=== PATIENT | female | born 1960 | race Caucasian/White ===

== ENCOUNTER 2016-04-30 22:27 | Observation (INO) | payer OTHER ==
[~2016-04-30] VITALS: Ht 167.6 cm; Wt 93.0 kg
--- NOTE | 2016-04-30 22:36 | NUR ---
TRIAGE; PT TO ED WITH PAIN ACROSS THE TOP OF HER ABDOMEN. STATES SHE HAS INTERMITTENT CHILLS AND USES A HEATING PAD WITH MINIMAL RELIEF. STATES SHE IS +N/V, DENIES ANY DIARREA. STATES WHEN SHE VOMITS, TOWARDS THE END SHE SEEMS LIKE HER EMESIS IS SLUDGE. PT DENIES ANY CP/SOB. STATES HAS HAD THIS HAPPEN TO HER 3-4 OTHER TIMES.
[2016-04-30 22:58] LABS: ABSOLUTE BASOPHIL COUNT 0 /CUMM (0.0-0.2); ABSOLUTE EOSINOPHIL COUNT 0.1 /CUMM (0.0-0.7); ABSOLUTE LYMPH COUNT 1.8 /CUMM (1.2-3.4); ABSOLUTE MONOCYTE COUNT 0.5 /CUMM (0.10-0.60); BASOPHIL % 0.3 % (0.0-2.0); EOSINOPHIL % 0.5 % (0-5); GRANULOCYTE % 82.9 % (42.2-75.2); HEMATOCRIT 40.9 % (37-47); MEAN CORPUSCULAR HGB 30.4 PG (27.0-31.0); MEAN CORPUSCULAR HGB CONC 33.8 G/DL (33.0-37.0); MEAN CORPUSCULAR VOLUME 89.9 FL (81.0-99.0); MEAN PLATELET VOLUME 8.1 FL (7.4-10.4); PLATELET COUNT 317 /CUMM (130-400); RBC DISTRIBUTION WIDTH 13.8 % (11.5-14.5); RED BLOOD CELL CT 4.55 /CUMM (4.20-5.40); WHITE BLOOD CELL COUNT 14.5 /CUMM (4.8-10.8)
--- NOTE | 2016-04-30 23:15 | NUR ---
PT TO ROOM 4, AWAITING PROVIDER EVAL
--- NOTE | 2016-04-30 23:22 | ED GI/GU/ABDOMINAL COMPLAINT ---
History of Present Illness General Chief Complaint: General Adult Stated Complaint: " ABD PAIN, +N+V-D,CHILLS" Source: patient, family, old records Exam Limitations: no limitations Vital Signs & Intake/Output Vital Signs & Intake/Output Vital Signs Date Time Temp Pulse Resp B/P Pulse O2 O2 Flow FiO2 Ox Delivery Rate 04/30 2323 Room Air 04/30 2234 97.9 67 16 146/84 98 Room Air Allergies Coded Allergies: Sulfa (Sulfonamide Antibiotics) (Intermediate, HIVES 04/30/16) Triage Note: TRIAGE; PT TO ED WITH PAIN ACROSS THE TOP OF HER ABDOMEN. STATES SHE HAS INTERMITTENT CHILLS AND USES A HEATING PAD WITH MINIMAL RELIEF. STATES SHE IS +N/V, DENIES ANY DIARREA. STATES WHEN SHE VOMITS, TOWARDS THE END SHE SEEMS LIKE HER EMESIS IS SLUDGE. PT DENIES ANY CP/SOB. STATES HAS HAD THIS HAPPEN TO HER 3-4 OTHER TIMES. Triage Nurses Notes Reviewed? yes ? N Is pt currently ? No HPI: Patient presents with epigastric abdominal pain that radiates through to her back. The pain is 8 out of 10. Patient states that the pain gradually escalated to the point that she vomits. When she vomits the pain decreases down to 5 out of 10 before slowly but steadily increasing again. There are no aggravating factors. The pain is cramping and squeezing and burning in nature. The patient states she has had similar symptoms in the past but the symptoms usually go away after a few hours and this episode has been going on for the past 4 hours constant. There are chills but no fevers. There is no diarrhea. Past History Travel History Traveled to [place] past 21 day No Medical History Any Pertinent Medical History? none Surgical History Surgical History: none Psychosocial History What is your primary language Nepali Tobacco Use: Never used ETOH Use: occasional use Illicit Drug Use: denies illicit drug use Family History Hx Contributory? No Review of Systems Review of Systems Constitutional: Reports: no symptoms. EENTM: Reports: no symptoms. Respiratory: Reports: no symptoms. Cardiovascular: Reports: no symptoms. GI: Reports: see HPI, abdominal pain, nausea, vomiting. Genitourinary: Reports: no symptoms. Musculoskeletal: Reports: no symptoms. Skin: Reports: no symptoms. Neurological/Psychological: Reports: no symptoms. Hematologic/Endocrine: Reports: no symptoms. Immunologic/Allergic: Reports: no symptoms. All Other Systems: Reviewed and Negative Physical Exam Physical Exam General Appearance: well developed/nourished, alert, awake, moderate distress Head: atraumatic, normal appearance Eyes: Bilateral: PERRL, EOMI, other (ANICTERIC). Ears, Nose, Throat, Mouth: hearing grossly normal, DRY MUCOSA Neck: normal inspection, supple, full range of motion Respiratory: normal breath sounds, chest non-tender, no respiratory distress, lungs clear Cardiovascular: regular rate/rhythm, normal peripheral pulses Gastrointestinal: normal bowel sounds, soft, no organomegaly, tenderness (RIGHT UPPER QUADRANT), POSITIVE [place] SIGN Back: normal inspection, normal range of motion, NO cva TENDERNESS Extremities: normal range of motion Neurologic/Psych: no motor/sensory deficits, awake, alert, oriented x 3, normal mood/affect Skin: intact, normal color, warm/dry Core Measures ACS in differential dx? Yes ASA ordered for poss ACS? No-ACS ruled out Severe Sepsis Present: No Septic Shock Present: No Progress Differential Diagnosis: AMI, biliary colic, cholecystitis, pancreatitis, peptic ulcer, PUD/GERD Plan of Care: Orders Procedure Date/time Status Place in observation 05/01 0038 Active Add-on Test (ER Only) 04/30 2321 Active EKG 04/30 2321 Active TROPONIN LEVEL 04/30 2253 Complete LIPASE 04/30 2253 Complete AMYLASE 04/30 2253 Complete COMPREHENSIVE METABOLIC PANEL 04/30 2240 Complete CBC WITHOUT DIFFERENTIAL 04/30 2240 Complete Laboratory Tests 04/30/16 2253: Anion Gap 11, Estimated GFR > 60, BUN/Creatinine Ratio 18.6, Glucose 139 H, Calcium 9.7, Total Bilirubin 0.9, AST 107 H, ALT 86 H, Alkaline Phosphatase 125, Troponin I < 0.01, Total Protein 7.6, Albumin 4.2, Globulin 3.4, Albumin/ Globulin Ratio 1.2, Amylase 61, Lipase 87, CBC w Diff NO MAN DIFF REQ, RBC 4.55, MCV 89.9, MCH 30.4, RDW 13.8, MPV 8.1, Gran % 82.9 H, Lymphocytes % 12.7 L, Monocytes % 3.6, Eosinophils % 0.5, Basophils % 0.3, Absolute Granulocytes 12.0 H, Absolute Lymphocytes 1.8, Absolute Monocytes 0.5, Absolute Eosinophils 0.1, Absolute Basophils 0, PUBS MCHC 33.8 Diagnostic Imaging: Viewed by Me: CT Scan. Discussed w/RAD: CT Scan. Radiology Impression: PATIENT: NAHUM LENZ PRESENT AGE: 55 PATIENT ACCOUNT NO: [id number] : 56 LOCATION: [facility] ORDERING PHYSICIAN: HOLLY CURTIS MD SERVICE DATE: 04/30/16 EXAM TYPE: CAT - CT ABD & PELVIS W IV CONTRAST EXAMINATION: CT ABDOMEN AND PELVIS WITH CONTRAST CLINICAL INFORMATION: Right upper quadrant abdominal pain COMPARISON: None. TECHNIQUE: Multidetector volumetric imaging was performed of the abdomen and pelvis before and after the IV administration of 95 mL of Optiray 320 intravenous contrast. Sagittal and coronal reformatted images were obtained on the technologist's workstation. DLP: 632.70 mGy-cm. FINDINGS: LUNG BASES: There is a 1.7 cm focal groundglass opacity in the left lower lobe. No pleural effusions. LIVER, GALLBLADDER, AND BILIARY TREE: The liver is normal in size, shape, and attenuation.. Multiple small hepatic hypodense lesions seen. The largest one measures about 17 mm with 10 Hounsfield unit density, likely representing a hepatic cyst. The gallbladder is distended and contains a small gallstone and hyperdense material. There is minimal fat stranding surrounding the posterior wall of the gallbladder as seen on sagittal image 93 from series 601. Findings could represent acute cholecystitis. Clinical correlation is advised. The CBD measures about 7-8 mm at the level of head of pancreas. No radiodense CBD stones seen. PANCREAS: Unremarkable. SPLEEN: Unremarkable. ADRENAL GLANDS: Unremarkable. KIDNEYS AND URETERS: The kidneys are normal in size, shape, and attenuation. No hydronephrosis, hydroureter, or calculi seen. No perinephric stranding. BLADDER: Unremarkable. GASTROINTESTINAL TRACT: The small and large bowel are not dilated. Mild diverticular disease of sigmoid colon is seen without evidence of acute diverticulitis. The appendix is unremarkable, sagittal image 89-100. ABDOMINAL WALL: Mesenteric fat herniates through a 2 cm defect in the anterior abdominal wall, located just above the umbilicus. There is stranding of the herniated mesenteric fat. No fluid seen within the hernial sac. LYMPH NODES: Normal. VASCULAR: Unremarkable. PELVIC VISCERA: Unremarkable. OSSEOUS STRUCTURES: There is narrowing of L5-S1 intervertebral disc space with grade 1 anterolisthesis and bilateral pars defects. IMPRESSION: 1. Gallstones with mild pericholecystic fat stranding. Clinical correlation for acute cholecystitis is suggested. 2. Fat-containing supraumbilical anterior abdominal wall hernia. The mid depth 3. Mild diverticular disease of sigmoid colon without evidence of acute diverticulitis. 4. Hepatic cysts. DICTATED BY: HAVEN SHARP MD DATE/TIME DICTATED:04/30/162352 TELECOM MANAGER:BELEN DATE/TIME TRANSCRIBED:04/30/162352 CONFIDENTIAL, DO NOT COPY WITHOUT APPROPRIATE AUTHORIZATION. <Electronically signed in Other Vendor System> SIGNED BY: HAVEN SHARP MD 05/01/16 0008 Initial ED EKG: NSR Comments: Patient and her have been updated on lab results as well as CAT scan results. Questions have been answered. Awaiting surgical consultation. Departure Departure Disposition: STILL A PATIENT Condition: Stable Clinical Impression Primary Impression: Acute cholecystitis Referrals: JESICA ADLER,HOLLY Abernathy (PCP/Family) Departure Forms: Customer Survey General Discharge Information Observation Note Spoke With: SHUN ADLER,KARLA Mcdermott Physician Advisor Notified: EVER ADLER,HOLLY Manuel Place Patient In: Non-ED OBS Care Area Rationale for Observation: My rational for observation is as follows [nothing by mouth, IV fluids, IV antibiotics, laparoscopic cholecystectomy].
--- NOTE | 2016-04-30 23:41 | NUR ---
IV EST #20 IN LEFT FOREARM BY THIS RN
--- NOTE | 2016-05-01 00:05 | NUR ---
PT C/O 5/10 PAIN AND NAUSEA. PT MEDICATED WITH ZOFRAN AND KETOROLAC PER ORDER.
--- NOTE | 2016-05-01 00:08 | CT SCAN REPORT ---
EXAMINATION: CT ABDOMEN AND PELVIS WITH CONTRAST CLINICAL INFORMATION: Right upper quadrant abdominal pain COMPARISON: None. TECHNIQUE: Multidetector volumetric imaging was performed of the abdomen and pelvis before and after the IV administration of 95 mL of Optiray 320 intravenous contrast. Sagittal and coronal reformatted images were obtained on the technologist's workstation. DLP: 632.70 mGy-cm. FINDINGS: LUNG BASES: There is a 1.7 cm focal groundglass opacity in the left lower lobe. No pleural effusions. LIVER, GALLBLADDER, AND BILIARY TREE: The liver is normal in size, shape, and attenuation.. Multiple small hepatic hypodense lesions seen. The largest one measures about 17 mm with 10 Hounsfield unit density, likely representing a hepatic cyst. The gallbladder is distended and contains a small gallstone and hyperdense material. There is minimal fat stranding surrounding the posterior wall of the gallbladder as seen on sagittal image 93 from series 601. Findings could represent acute cholecystitis. Clinical correlation is advised. The CBD measures about 7-8 mm at the level of head of pancreas. No radiodense CBD stones seen. PANCREAS: Unremarkable. SPLEEN: Unremarkable. ADRENAL GLANDS: Unremarkable. KIDNEYS AND URETERS: The kidneys are normal in size, shape, and attenuation. No hydronephrosis, hydroureter, or calculi seen. No perinephric stranding. BLADDER: Unremarkable. GASTROINTESTINAL TRACT: The small and large bowel are not dilated. Mild diverticular disease of sigmoid colon is seen without evidence of acute diverticulitis. The appendix is unremarkable, sagittal image 89-100. ABDOMINAL WALL: Mesenteric fat herniates through a 2 cm defect in the anterior abdominal wall, located just above the umbilicus. There is stranding of the herniated mesenteric fat. No fluid seen within the hernial sac. LYMPH NODES: Normal. VASCULAR: Unremarkable. PELVIC VISCERA: Unremarkable. OSSEOUS STRUCTURES: There is narrowing of L5-S1 intervertebral disc space with grade 1 anterolisthesis and bilateral pars defects. IMPRESSION: 1. Gallstones with mild pericholecystic fat stranding. Clinical correlation for acute cholecystitis is suggested. 2. Fat-containing supraumbilical anterior abdominal wall hernia. The mid depth 3. Mild diverticular disease of sigmoid colon without evidence of acute diverticulitis. 4. Hepatic cysts.
--- NOTE | 2016-05-01 00:08 | NUR ---
EKG DONE AND SHOWN TO DR. CURTIS.
--- NOTE | 2016-05-01 00:34 | NUR ---
PT MEDICATED WITH 1G UNASYN @200MLS/HR PER EMAR
--- NOTE | 2016-05-01 01:32 | NUR ---
PT DENIES PAIN AND NAUSEA. PT APPEARS COMFORTABLE. PT INFORMED OF PLAN. NO APPARENT DISTRESS. WILL CONTINUE TO MONITOR .
--- NOTE | 2016-05-01 01:37 | Admission Core Measures ---
Admission Lab Results I reviewed the following labs: Laboratory Tests 04/30 9127 Chemistry Sodium (137 - 145 mmol/L) 143 Potassium (3.5 - 5.1 mmol/L) 3.9 Chloride (98 - 107 mmol/L) 107 Carbon Dioxide (22 - 30 mmol/L) 25 Anion Gap (5 - 16) 11 BUN (7 - 17 mg/dL) 13 Creatinine (0.5 - 1.0 mg/dL) 0.7 Estimated GFR (>60 ml/min) > 60 BUN/Creatinine Ratio (7 - 25 %) 18.6 Glucose (65 - 99 mg/dL) 139 H Calcium (8.4 - 10.2 mg/dL) 9.7 Total Bilirubin (0.2 - 1.3 mg/dL) 0.9 AST (14 - 36 U/L) 107 H ALT (9 - 52 U/L) 86 H Alkaline Phosphatase (<127 U/L) 125 Troponin I (< 0.11 ng/ml) < 0.01 Total Protein (6.3 - 8.2 g/dL) 7.6 Albumin (3.5 - 5.0 g/dL) 4.2 Globulin (1.9 - 4.2 gm/dL) 3.4 Albumin/Globulin Ratio (1.1 - 2.2 %) 1.2 Amylase (30 - 110 U/L) 61 Lipase (23 - 300 U/L) 87 Hematology CBC w Diff NO MAN DIFF REQ WBC (4.8 - 10.8 /CUMM) 14.5 H RBC (4.20 - 5.40 /CUMM) 4.55 Hgb (12.0 - 16.0 G/DL) 13.8 Hct (37 - 47 %) 40.9 MCV (81.0 - 99.0 FL) 89.9 MCH (27.0 - 31.0 PG) 30.4 RDW (11.5 - 14.5 %) 13.8 Plt Count (130 - 400 /CUMM) 317 MPV (7.4 - 10.4 FL) 8.1 Gran % (42.2 - 75.2 %) 82.9 H Lymphocytes % (20.5 - 51.1 %) 12.7 L Monocytes % (1.7 - 9.3 %) 3.6 Eosinophils % (0 - 5 %) 0.5 Basophils % (0.0 - 2.0 %) 0.3 Absolute Granulocytes (1.4 - 6.5 /CUMM) 12.0 H Absolute Lymphocytes (1.2 - 3.4 /CUMM) 1.8 Absolute Monocytes (0.10 - 0.60 /CUMM) 0.5 Absolute Eosinophils (0.0 - 0.7 /CUMM) 0.1 Absolute Basophils (0.0 - 0.2 /CUMM) 0 PUBS MCHC (33.0 - 37.0 G/DL) 33.8 Admission Meds I reviewed the following Meds: Current Medications Sig/Heriberto Start time Last Medication Dose Stop Time Status Admin Ampicillin Sodium/ 3,000 MG Q6 05/01 0600 UNVr Sulbactam Sodium (Unasyn) Sodium Chloride 100 ML (Normal Saline 0.9%) Dextrose/Sodium 1,000 ML .Q10H 05/01 0130 UNVr Chloride (D5W-1/2 Normal Saline 1000ML) Morphine Sulfate 2 MG Q2P PRN 05/01 0130 UNVr (Morphine) Ondansetron HCl 4 MG Q8P PRN 05/01 0130 UNVr (Zofran) Acute Coronary Syndrome Inclusion Criteria ACS Diagnosis No Inpatient Core Measures LDL Reminder: If No, please order W/I first 24hr of stay Congestive Heart Failure Inclusion Criteria CHF Diagnosis No Cerebrovascular accident Inclusion Criteria CVA/TIA Diagnosis No Inpatient Core Measures Bedside Swallow Eval Reminder: If BSE failed, place ST order Antithrombotic Reminder: Order Antithrombotic Medication by end of day 2 Antithrombotic Reminder: Document Reason Antithrombotic Not ordered by end of day 2 AFIB/Flutter Reminder: If Present, add to problem list AFIB/Flutter Reminder: Order Anticoag Medication for pts with AFIB/Flutter Atherosclerosis Reminder: If Present, add to problem list LDL Reminder: If No, please order W/I first 24hr of stay PT Order Reminder: If No, please order Venous thromboembolism Inpatient Core Measures VTE Risk Factors: Age > 40 VTE Prophylaxis Ordered Inpt Mechanical (ALPS/TEDS) No [facility] VTE prophylaxis d/t No contraindications No VTE Pharm Prophylaxis d/t Surgical contraindication Inclusion Criteria - Per Current guidelines, there needs to be overlap - treatment for the first 5 days of Warfarin therapy. - Parenteral Anticoagulation (IV or SC) needs to be - given along with Warfarin therapy. VTE Diagnosis No VTE Type NONE VTE Confirmed by (Test) NONE Problem List As ranked by this Provider includes Assessment & Plan 1. Acute cholecystitis
--- NOTE | 2016-05-01 01:56 | History & Physical Pre-Op ---
SIENNABA 05/01/16 0137: General Information and HPI MD Statement: I have seen and personally examined MELBA LENZ and documented this H&P. The patient is a 55 year old F who presented with a patient stated chief complaint of [ABDOMINAL PAIN, NAUSEA, VOMITTING]. Source of Information: patient Exam Limitations: no limitations History of Present Illness: Melba is a 55 year old female presenting to ED today with complaints of abdominal pain, at times 10/10, in the epigastric area and also in her right upper quadrant. She last ate this afternoon. She has been vomitting. She denies diarrhea. She last moved her bowels this am. She states that she began to notice abdominal discomfort approximately 6 months ago, and since that time has had 4 episodes similar in nature to this present one, this one being the worst. She has tried diet modification as well as antacid therapy to relieve her symptoms, it has been helpful prevously, but today had no effect. In addition to abdominal discomfort today she complains of chills and general malaise. She denies chest pain, shortness of breath and difficulty breathing. Melba also mentioned a history of what she describes as an umbilical hernia, she does not associate her present discomort with any change in the character of the hernia. She states it is most pronounced when she coughs. Allergies/Medications Allergies: Coded Allergies: Sulfa (Sulfonamide Antibiotics) (Intermediate, HIVLAURA 04/30/16) Past History Medical History Neurological: NONE EENT: NONE Cardiovascular: NONE Respiratory: NONE Gastrointestinal: NONE Hepatic: cholecystitis, cholelithiasis Renal: NONE Musculoskeletal: NONE Psychiatric: NONE Endocrine: NONE Blood Disorders: NONE Surgical History Pertinent Surgical History: none Past Family/Social History Psychosocial History ETOH Use: occasional use Illicit Drug Use: denies illicit drug use Review of Systems Review of Systems Constitutional: Reports: see HPI, chills, malaise. EENTM: Reports: no symptoms. Cardiovascular: Reports: no symptoms. Respiratory: Reports: no symptoms. GI: Reports: see HPI, abdominal pain, nausea, vomiting. Genitourinary: Reports: no symptoms. Musculoskeletal: Reports: no symptoms. Skin: Reports: no symptoms. Neurological/Psychological: Reports: no symptoms. Hematologic/Endocrine: Reports: no symptoms. Immunologic/Allergic: Reports: no symptoms. All Other Systems: Reviewed and Negative Exam & Diagnostic Data Last 24 Hrs of Vital Signs/I&O Vital Signs Date Time Temp Pulse Resp B/P Pulse O2 O2 Flow FiO2 Ox Delivery Rate 05/01 0133 98.2 63 18 126/64 98 Room Air 04/30 2322 Room Air 04/304 97.9 67 16 146/84 98 Room Air Intake & Output 05/01 0800 05/01 0000 04/30 1600 Intake Total 0 Output Total Balance 0 Intake, Oral 0 Physical Exam General Appearance Alert, Oriented X3, Cooperative, No Acute Distress Skin No Rashes, No Breakdown, No Significant Lesion HEENT Atraumatic, PERRLA, EOMI, Mucous Membr. moist/pink, ANICTERIC Neck Supple, No JVD Lungs Clear to Auscultation, Normal Air Movement Abdomen Soft, No Masses, RUQ TENDERNESS, HYPOACTIVE BOWEL SOUNDS Neurological Normal Speech Extremities No Clubbing, No Cyanosis, No Edema, Normal Pulses, No Tenderness/ Swelling Vascular Normal Pulses Last 24 Hrs of Labs/Vinicio: Laboratory Tests 04/30/163: Anion Gap 11, Estimated GFR > 60, BUN/Creatinine Ratio 18.6, Glucose 139 H, Calcium 9.7, Total Bilirubin 0.9, AST 107 H, ALT 86 H, Alkaline Phosphatase 125, Troponin I < 0.01, Total Protein 7.6, Albumin 4.2, Globulin 3.4, Albumin/ Globulin Ratio 1.2, Amylase 61, Lipase 87, CBC w Diff NO MAN DIFF REQ, RBC 4.55, MCV 89.9, MCH 30.4, RDW 13.8, MPV 8.1, Gran % 82.9 H, Lymphocytes % 12.7 L, Monocytes % 3.6, Eosinophils % 0.5, Basophils % 0.3, Absolute Granulocytes 12.0 H, Absolute Lymphocytes 1.8, Absolute Monocytes 0.5, Absolute Eosinophils 0.1, Absolute Basophils 0, PUBS MCHC 33.8 Diagnostic Data Other Results PATIENT: MELBA LENZ PRESENT AGE: 55 PATIENT ACCOUNT NO: [id number] : 56 LOCATION: [facility] ORDERING PHYSICIAN: HOLLY CURTIS MD SERVICE DATE: 04/30/16 EXAM TYPE: CAT - CT ABD & PELVIS W IV CONTRAST EXAMINATION: CT ABDOMEN AND PELVIS WITH CONTRAST CLINICAL INFORMATION: Right upper quadrant abdominal pain COMPARISON: None. TECHNIQUE: Multidetector volumetric imaging was performed of the abdomen and pelvis before and after the IV administration of 95 mL of Optiray 320 intravenous contrast. Sagittal and coronal reformatted images were obtained on the technologist's workstation. DLP: 632.70 mGy-cm. FINDINGS: LUNG BASES: There is a 1.7 cm focal groundglass opacity in the left lower lobe. No pleural effusions. LIVER, GALLBLADDER, AND BILIARY TREE: The liver is normal in size, shape, and attenuation.. Multiple small hepatic hypodense lesions seen. The largest one measures about 17 mm with 10 Hounsfield unit density, likely representing a hepatic cyst. The gallbladder is distended and contains a small gallstone and hyperdense material. There is minimal fat stranding surrounding the posterior wall of the gallbladder as seen on sagittal image 93 from series 601. Findings could represent acute cholecystitis. Clinical correlation is advised. The CBD measures about 7-8 mm at the level of head of pancreas. No radiodense CBD stones seen. PANCREAS: Unremarkable. SPLEEN: Unremarkable. ADRENAL GLANDS: Unremarkable. KIDNEYS AND URETERS: The kidneys are normal in size, shape, and attenuation. No hydronephrosis, hydroureter, or calculi seen. No perinephric stranding. BLADDER: Unremarkable. GASTROINTESTINAL TRACT: The small and large bowel are not dilated. Mild diverticular disease of sigmoid colon is seen without evidence of acute diverticulitis. The appendix is unremarkable, sagittal image 89-100. ABDOMINAL WALL: Mesenteric fat herniates through a 2 cm defect in the anterior abdominal wall, located just above the umbilicus. There is stranding of the herniated mesenteric fat. No fluid seen within the hernial sac. LYMPH NODES: Normal. VASCULAR: Unremarkable. PELVIC VISCERA: Unremarkable. OSSEOUS STRUCTURES: There is narrowing of L5-S1 intervertebral disc space with grade 1 anterolisthesis and bilateral pars defects. IMPRESSION: 1. Gallstones with mild pericholecystic fat stranding. Clinical correlation for acute cholecystitis is suggested. 2. Fat-containing supraumbilical anterior abdominal wall hernia. The mid depth 3. Mild diverticular disease of sigmoid colon without evidence of acute diverticulitis. 4. Hepatic cysts. DICTATED BY: HAVEN SHARP MD DATE/TIME DICTATED:04/30/16 2353 QUOTER:RAD.[email or web address] DATE/TIME TRANSCRIBED:04/30/16 / 1247 CONFIDENTIAL, DO NOT COPY WITHOUT APPROPRIATE AUTHORIZATION. <Electronically signed in Other Vendor System> SIGNED BY: LACEY SHARP MD 05/01/16 0008 Assessment/Plan Assessment/Plan: This is a 55 year old female with complaints of abdominal pain, nausea and vomitting. She has no medical history. She has no surgical history. She obtained a ct scan while in hospital which was suggestive of acute cholecystitis and cholelithiasis as well as an abdominal wall hernia in the daryn-umbilical region. Her LFT studies indicated elevated AST and ALT and her white blood cell count is elevated. -Place patient in general observation -Repeat LFTs and labs in the am, if elevated consider ERCP to explore common bile duct -NPO -IV Fluids: D5 1/2NS at 100/hr -IV unasyn 3g q6 hours -IV morphine for pain -Plan for laparoscopic cholecystectomy in am -Will d/w Dr. Ramírez HOFFMANN MD,KARLA 05/09/162009: General Information and HPI Allergies/Medications Home Med list Hydrocodone/Acetaminophen (Vicodin 5-300 MG Tablet) 5 MG-300 MG TABLET 1-2 TAB PO Q4P PRN pain Assessment/Plan As Ranked By This Provider Problem List: 1. Choledocholithiasis
--- NOTE | 2016-05-01 01:57 | NUR ---
BED ASSIGNMENT 229-2
--- NOTE | 2016-05-01 02:16 | RADIOLOGY REPORT ---
EXAMINATION: XR PORTABLE CHEST CLINICAL INFORMATION: Abdominal pain, preoperative chest x-ray COMPARISON: None. TECHNIQUE: Portable view of the chest was obtained. FINDINGS: The lungs are clear with no focal consolidation. No evidence of pneumothorax, pulmonary edema, or pleural effusions. The cardiomediastinal silhouette is unremarkable. No acute osseous findings. IMPRESSION: No acute cardiopulmonary findings.
--- NOTE | 2016-05-01 03:04 | NUR ---
PT APPEARS TO BE RESTING COMFORTABLY. DENIES PAIN AND NAUSEA
--- NOTE | 2016-05-01 07:22 | PN- General Surgery ---
Subjective Subjective: HD #1 with acute cholecystitis with mild elevation in AST/ALT yesterday. States she is relatively pain free this morning after receiving antibiotics, pain medication and antiemetics. No complaints of CP/SOB, F/C. Ambulating well. Voiding spontaneously. Objective Vital Signs and I&Os Vital Signs Date Time Temp Pulse Resp B/P Pulse O2 O2 Flow FiO2 Ox Delivery Rate 05/01 0303 98.9 63 18 128/74 98 Room Air 05/01 0133 98.2 63 18 126/64 98 Room Air 04/30 2323 Room Air 04/30 2234 97.9 67 16 146/84 98 Room Air Intake & Output 05/01 0800 05/01 0000 04/30 1600 04/30 0800 04/30 0000 04/29 1600 Intake Total 0 Output Total Balance 0 Intake, Oral 0 Patient 205 lb Weight Physical Exam: Gen: AAOx3 in NAD Cor: S1+S2+ Lungs: CTA adrián Abd: soft, tender to deep palpation in epigastric area and RUQ, ND, +BS x4 Ext: no edema or calf tenderness to adrián lower extremities. Results Last 48 Hours of Labs: Laboratory Tests 05/01 04/30 0621 2253 Chemistry Sodium (137 - 145 mmol/L) Pending 143 Potassium (3.5 - 5.1 mmol/L) Pending 3.9 Chloride (98 - 107 mmol/L) Pending 107 Carbon Dioxide (22 - 30 mmol/L) Pending 25 Anion Gap (5 - 16) Pending 11 BUN (7 - 17 mg/dL) Pending 13 Creatinine (0.5 - 1.0 mg/dL) Pending 0.7 Estimated GFR (>60 ml/min) > 60 BUN/Creatinine Ratio (7 - 25 %) Pending 18.6 Glucose (65 - 99 mg/dL) 139 H Calcium (8.4 - 10.2 mg/dL) 9.7 Total Bilirubin (0.2 - 1.3 mg/dL) Pending 0.9 Direct Bilirubin Pending AST (14 - 36 U/L) Pending 107 H ALT (9 - 52 U/L) Pending 86 H Alkaline Phosphatase (<127 U/L) Pending 125 Troponin I (< 0.11 ng/ml) < 0.01 Total Protein (6.3 - 8.2 g/dL) Pending 7.6 Albumin (3.5 - 5.0 g/dL) Pending 4.2 Globulin (1.9 - 4.2 gm/dL) 3.4 Albumin/Globulin Ratio (1.1 - 2.2 %) 1.2 Amylase (30 - 110 U/L) 61 Lipase (23 - 300 U/L) 87 Coagulation PT Pending INR Pending Hematology CBC w Diff Pending NO MAN DIFF REQ WBC (4.8 - 10.8 /CUMM) Pending 14.5 H RBC (4.20 - 5.40 /CUMM) Pending 4.55 Hgb (12.0 - 16.0 G/DL) Pending 13.8 Hct (37 - 47 %) Pending 40.9 MCV (81.0 - 99.0 FL) Pending 89.9 MCH (27.0 - 31.0 PG) Pending 30.4 RDW (11.5 - 14.5 %) Pending 13.8 Plt Count (130 - 400 /CUMM) Pending 317 MPV (7.4 - 10.4 FL) Pending 8.1 Gran % (42.2 - 75.2 %) 82.9 H Lymphocytes % (20.5 - 51.1 %) 12.7 L Monocytes % (1.7 - 9.3 %) 3.6 Eosinophils % (0 - 5 %) 0.5 Basophils % (0.0 - 2.0 %) 0.3 Absolute Granulocytes (1.4 - 6.5 /CUMM) 12.0 H Absolute Lymphocytes (1.2 - 3.4 /CUMM) 1.8 Absolute Monocytes (0.10 - 0.60 /CUMM) 0.5 Absolute Eosinophils (0.0 - 0.7 /CUMM) 0.1 Absolute Basophils (0.0 - 0.2 /CUMM) 0 PUBS MCHC (33.0 - 37.0 G/DL) Pending 33.8 Assessment/Plan Assessment/Plan A: HD #1 with acute cholecysisitis with mild elevation in AST/ALT; AVSS. On IV Unasyn. Remains NPO. Plan: F/U am labwork, may need GI consultation if LFTs elevated. OOB and ambulate. Patient to remain NPO in case OR necessary for laparoscopic cholecystectomy. Continue IV Unasyn. Core Measures/Miscellaneous Venous Thromboembolism VTE Risk Factors: Age > 40, Obesity VTE Contraindications: No Contraindications VTE Prophylaxis Ordered Inpt Mechanical (ALPS/TEDS) VTE Diagnosis: No VTE Type: NONE VTE Confirmed by (Test): NONE Beta Lavinia Is Beta Lavinia a Home Med? No Antibiotics Is Patient on Antibiotics? Yes If Yes: infection
[2016-05-01 08:25] LABS: PT 11.3 SEC (9.4-12.5)
[2016-05-01 08:35] LABS: ABSOLUTE BASOPHIL COUNT 0 /CUMM (0.0-0.2); ABSOLUTE EOSINOPHIL COUNT 0 /CUMM (0.0-0.7); ABSOLUTE GRANULOCYTE CT 4.8 /CUMM (1.4-6.5); ABSOLUTE MONOCYTE COUNT 0.4 /CUMM (0.10-0.60)
[2016-05-01 09:00] LABS: ABSOLUTE LYMPH COUNT 1.7 /CUMM (1.2-3.4); BASOPHIL % 0.4 % (0.0-2.0); EOSINOPHIL % 0.4 % (0-5); GRANULOCYTE % 68.4 % (42.2-75.2); MEAN CORPUSCULAR HGB 30.9 PG (27.0-31.0); MEAN CORPUSCULAR HGB CONC 34.2 G/DL (33.0-37.0); MEAN CORPUSCULAR VOLUME 90.3 FL (81.0-99.0); PLATELET COUNT 253 /CUMM (130-400); RBC DISTRIBUTION WIDTH 13.9 % (11.5-14.5); RED BLOOD CELL CT 3.93 /CUMM (4.20-5.40)
[2016-05-01 09:07] LABS: HEMATOCRIT 35.5 % (37-47)
[2016-05-01 14:40] VITALS: BP 120/72
--- NOTE | 2016-05-01 16:43 | History & Physical Pre-Op ---
General Information and HPI Source of Information: patient Exam Limitations: no limitations History of Present Illness: CC: abdominal pain HPI: Patient is a 55-year-old nondiabetic nonsmoker no meds, self-proclaimed avoider of medicines, presented to the ER last night with mid epigastric pain which did not radiate around the sides but at its peak seem to go straight through to her back it's a little better now she didn't come to the ER until she vomited she's had 4 of these episodes over the past 4 months this is the first hospitalization for, during the previous episode she thought it was heartburn and took some Nexium, she tried to adjust her diet but 2 days ago she went to the [employer] pot had a little cheese fondue. She has noticed today that her urine is darker and also on previous episodes her stool got a little softer as well. She's had a little chills but no definite fever. Otherwise no changes bowel habits, weight or appetite. I've reviewed the [facility]. No history of GERD, PUD, bleeding problems, heart disease or issues with anesthesia. Family history of heart disease bladder cancer rheumatoid arthritis and hypertension, she's not had surgery. 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: NONE Surgical History Pertinent Surgical History: none Past Family/Social History Psychosocial History Smoking Status: Never Smoked ETOH Use: occasional use Illicit Drug Use: denies illicit drug use Review of Systems Review of Systems: Constitutional: No fever, sweats or weight loss ENMT: No sore throat Cardiovascular: No chest pain, palpitations or leg swelling Respiratory: No shortness of breath, cough, or sputum or dyspnea on exertion GI: Maybe GERD but no bleeding per rectum : No dysuria or hematuria Musculoskeletal: No new muscle weakness, bone or joint pain Skin / Breast: No jaundice, rashes or itching Psychiatric: No history of drug or alcohol abuse no depression or anxiety Hematologic / lymphatic system: No problems with excessive bleeding, bruising, or blood clots Exam & Diagnostic Data Last 24 Hrs of Vital Signs/I&O I reviewed Vital Signs Date Time Temp Pulse Resp B/P Pulse O2 O2 Flow FiO2 Ox Delivery Rate 05/01 1440 98.2 82 20 120/72 96 05/01 0303 98.9 63 18 128/74 98 Room Air 05/01 0133 98.2 63 18 126/64 98 Room Air 04/30 2323 Room Air 04/30 2234 97.9 67 16 146/84 98 Room Air I reviewed Intake & Output 05/01 1600 05/01 0800 05/01 0000 Intake Total 500 Output Total Balance 500 Intake, IV 500 Intake, Oral 0 Patient 205 lb Weight Physical Exam: Constitutional: pleasant, no acute distress, conversant Eyes: sclera anicteric ENMT: ears and nose atraumatic, moist mucous membranes, good dentition, no lip lesions Neck: Supple, trachea is midline, no cervical or supraclavicular adenopathy and no palpable thyromegaly Cardiovascular: S1, S2, no murmurs, no peripheral edema Respiratory: clear to auscultation with normal respiratory effort and no intercostal retractions GI: abdomen soft, nontender, nondistended, no palpable hepatosplenomegaly Extremities / lymphatics: symmetrically warm, free range of motion no peripheral edema, no cervical, supraclavicular, axillary, or inguinal adenopathy Musculoskeletal: Normal gait and station, no digital cyanosis, good muscle strength and tone no atrophy, motor grossly 5 out of 5 throughout Skin: no jaundice, no rashes warm, nondiaphoretic, no areas of erythema or induration Psychiatric: mood and affect are appropriate and alert and oriented to person place and time Last 24 Hrs of Labs/Vinicio: I reviewed Laboratory Tests 05/01/16 0621: Anion Gap 8, Estimated GFR > 60, BUN/Creatinine Ratio 12.9, Total Bilirubin 0.9, Direct Bilirubin 0.5 H, AST 323 H, ALT 316 H, Alkaline Phosphatase 110, Total Protein 6.4, Albumin 3.6, PT 11.3, INR 1.08, CBC w Diff NO MAN DIFF REQ, RBC 3.93 L, MCV 90.3, MCH 30.9, RDW 13.9, MPV 9.0, Gran % 68.4, Lymphocytes % 24.5, Monocytes % 6.3, Eosinophils % 0.4, Basophils % 0.4, Absolute Granulocytes 4.8, Absolute Lymphocytes 1.7, Absolute Monocytes 0.4, Absolute Eosinophils 0, Absolute Basophils 0, PUBS MCHC 34.2 04/30/16 2253: Anion Gap 11, Estimated GFR > 60, BUN/Creatinine Ratio 18.6, Glucose 139 H, Calcium 9.7, Total Bilirubin 0.9, AST 107 H, ALT 86 H, Alkaline Phosphatase 125, Troponin I < 0.01, Total Protein 7.6, Albumin 4.2, Globulin 3.4, Albumin/ Globulin Ratio 1.2, Amylase 61, Lipase 87, CBC w Diff NO MAN DIFF REQ, RBC 4.55, MCV 89.9, MCH 30.4, RDW 13.8, MPV 8.1, Gran % 82.9 H, Lymphocytes % 12.7 L, Monocytes % 3.6, Eosinophils % 0.5, Basophils % 0.3, Absolute Granulocytes 12.0 H, Absolute Lymphocytes 1.8, Absolute Monocytes 0.5, Absolute Eosinophils 0.1, Absolute Basophils 0, PUBS MCHC 33.[address] scan on PACS myself from last night it shows a dilated gallbladder, with some radiodense either sludge or tiny stone and a dilated common bile duct there is a little bit of stranding behind the gallbladder inferiorly Diagnostic Data Other Results PATIENT: NAHUM LENZ PRESENT AGE: 55 PATIENT ACCOUNT NO: [id number] : 56 LOCATION: [facility] ORDERING PHYSICIAN: HOLLY CURTIS MD SERVICE DATE: 04/30/16 EXAM TYPE: CAT - CT ABD & PELVIS W IV CONTRAST EXAMINATION: CT ABDOMEN AND PELVIS WITH CONTRAST CLINICAL INFORMATION: Right upper quadrant abdominal pain COMPARISON: None. TECHNIQUE: Multidetector volumetric imaging was performed of the abdomen and pelvis before and after the IV administration of 95 mL of Optiray 320 intravenous contrast. Sagittal and coronal reformatted images were obtained on the technologist's workstation. DLP: 632.70 mGy-cm. FINDINGS: LUNG BASES: There is a 1.7 cm focal groundglass opacity in the left lower lobe. No pleural effusions. LIVER, GALLBLADDER, AND BILIARY TREE: The liver is normal in size, shape, and attenuation.. Multiple small hepatic hypodense lesions seen. The largest one measures about 17 mm with 10 Hounsfield unit density, likely representing a hepatic cyst. The gallbladder is distended and contains a small gallstone and hyperdense material. There is minimal fat stranding surrounding the posterior wall of the gallbladder as seen on sagittal image 93 from series 601. Findings could represent acute cholecystitis. Clinical correlation is advised. The CBD measures about 7-8 mm at the level of head of pancreas. No radiodense CBD stones seen. PANCREAS: Unremarkable. SPLEEN: Unremarkable. ADRENAL GLANDS: Unremarkable. KIDNEYS AND URETERS: The kidneys are normal in size, shape, and attenuation. No hydronephrosis, hydroureter, or calculi seen. No perinephric stranding. BLADDER: Unremarkable. GASTROINTESTINAL TRACT: The small and large bowel are not dilated. Mild diverticular disease of sigmoid colon is seen without evidence of acute diverticulitis. The appendix is unremarkable, sagittal image 89-100. ABDOMINAL WALL: Mesenteric fat herniates through a 2 cm defect in the anterior abdominal wall, located just above the umbilicus. There is stranding of the herniated mesenteric fat. No fluid seen within the hernial sac. LYMPH NODES: Normal. VASCULAR: Unremarkable. PELVIC VISCERA: Unremarkable. OSSEOUS STRUCTURES: There is narrowing of L5-S1 intervertebral disc space with grade 1 anterolisthesis and bilateral pars defects. IMPRESSION: 1. Gallstones with mild pericholecystic fat stranding. Clinical correlation for acute cholecystitis is suggested. 2. Fat-containing supraumbilical anterior abdominal wall hernia. The mid depth 3. Mild diverticular disease of sigmoid colon without evidence of acute diverticulitis. 4. Hepatic cysts. DICTATED BY: HAVEN SHARP MD DATE/TIME DICTATED:04/30/162352 DIAGNOSTIC CARDIAC SONOGRAPHER:BELEN DATE/TIME TRANSCRIBED:04/30/162352 CONFIDENTIAL, DO NOT COPY WITHOUT APPROPRIATE AUTHORIZATION. <Electronically signed in Other Vendor System> SIGNED BY: HAVEN SHARP MD 05/01/16 0008 Assessment/Plan Assessment/Plan: My impression is symptomatic gallstones. The story is typical. The current standard of care is removal of the gallbladder laparoscopically, preferably not emergently. Once they become symptomatic, gallstones can lead to complications such as cholecystitis, pancreatitis and cholangitis and rarely others, her story plus the increasing LFTs and the imaging suggests she may have choledocholithiasis if not developing cholangitis so before surgery she needs her duct evaluated we'll start with MRCP and depending on what it shows the labs an ERCP. Fortunately her pain is better which can suggest the passage of a stone. She probably does not have acute cholecystitis. Again she feels better but is still little sore which might indicate that the stone is still stuck or there is edema. I explained the nature and possibility of retained stones, and rarely, persistent postoperative diarrhea. I explained to her how the stones cause problems and how the anatomy and inflammation can make the surgery more difficult, sometimes requiring an open procedure, and rarely to repair a bile duct injury leading to significant morbidity and even mortality. This in our practice is exceedingly rare, but other more common risks were also discussed such as infection, injury to other surrounding structures such as bowel and blood vessels. We also discussed the potential risks, benefits and alternatives to the procedure and surgery in general, issues that included but were not limited to, anesthetic risks hemorrhage requiring transfusion, the risk of transfusion itself, infection, heart attack, stroke, . As Ranked By This Provider Problem List: 1. Choledocholithiasis 2. Epigastric pain
--- NOTE | 2016-05-01 16:53 | Cons- Gastroenterology ---
General Information and HPI Consulting Request Date of Consult: 05/01/16 Requested By: SHUN ADLER,KARLA Mcdermott Reason for Consult: Abdominal pain, nausea, vomiting, abnormal LFTs. Source of Information: patient Exam Limitations: No old records in [place] computer History of Present Illness: 55-year-old female, followed by Dr. Holly Schmitt for primary care, non- hypertensive, non-diabetic, recently diagnosed hyperlipidemia, low Vit D, slightly obese, reportedly with previously normal LFTs, who started noticing abdominal pain intermittently 5 months ago, starting in the summer of 2015, usually after eating red meat or greasy foods. There is positive family history of gallbladder disease (patient's sister), otherwise no family history of any additional GI disease, GI emergency, or inherited liver disease. There is no apparent history of hepatitis. 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 She had a few recurrent episodes of abdominal pain after dietary indiscretion, last occurring in the evening of 04/30/2016, causing her to go to the [place] ER later that evening, where she arrived at approximately 10:30 PM, this time occurring after eating pasta and Sinhala food, and by nausea and vomiting, contents from above showing partially digested food, without blood or bile. Her abdominal pain was initially "10 out of 10". She was hemodynamically stable and persistently afebrile in the ER. There is no history of melena. She does not take any aspirin or NSAIDs. She denies any fevers, but thought she might have had some chills. She had a minimal dry cough , otherwise no symptoms of URI or UTI. She denies any jaundice, pruritus, or light stool, but claims that her urine was little dark, although she might of been dehydrated. She has not a previous EGD or baseline colonoscopy, despite her age. She does not smoke or consume significant amounts of alcohol. There is no history of blood transfusions, or any previous hospitalizations or surgery. There the patient's right epigastric pain is localized, without any radiation to the back or right scapula. It was slightly better when applying a heating pad, or when hunched over in the position. There is no GERD, odynophagia, dysphagia, ot early satiety. She denies any diarrhea, constipation, obstipation, or rectal bleeding. There was no chest pain or shortness of breath. The patient received Toradol, Zofran, and IV fluids in the ER, in addition to IV Unasyn & was admitted to the surgical service. She was not cultured prior to antibiotics. 04/30/2016: Admission labs- WBC 14.5 (83% gran, 12 gran Ab), H/H 13.8/40.9, normal MCV, PLT 317, glu 139, BUN/Cr 13/0.7, GFR > 60, normal electrolytes, including Ca2+ 9.7, albumin 4.2, globulin 3.4, TBil 0.9, alk phos 125, AST 107, ALT 86, troponin < .01, normal amylase/lipase 61/87 05/01/2016: PT 11.3, INR 1.08, WBC 7.0, H/H 12.1/35.5, PLT 253, normal lites, GFR > 60, alb 3.6, glob 2.8, TBil 0.9, DBil 0.5, alk phos 110. AST 323, ALT 316. 04/30/2016: CT ABD & PELVIS W IV CONTRAST- 1. Gallstones with mild pericholecystic fat stranding. Clinical correlation for acute cholecystitis is suggested. 2. Fat-containing supraumbilical anterior abdominal wall hernia. The mid depth 3. Mild diverticular disease of sigmoid colon without evidence of acute diverticulitis. 4. Hepatic cysts. 05/01/2015: EKG- NSR @ 60, normal axis, normal intervals, nonspecific T-wave abnormalities anteriorly. 05/01/2016: XRY-PORTABLE CHEST XRAY- No acute cardiopulmonary findings. Allergies/Medications Allergies: Coded Allergies: Sulfa (Sulfonamide Antibiotics) (Intermediate, HIVES 04/30/16) Home Med List: No Known Home Medications Current Medications: Current Medications Sig/Heriberto Start time Last Medication Dose Route Stop Time Status Admin Acetaminophen 650 MG Q6-PRN PRN 05/01 1530 AC PO Ampicillin Sodium/ 3,000 MG Q6 05/01 0600 AC 05/01 Sulbactam Sodium IV 1249 Sodium Chloride 100 ML Ampicillin Sodium/ 0 .STK-MED ONE 05/01 0031 DC Sulbactam Sodium .ROUTE Ampicillin Sodium/ 3,000 MG ONCE ONE 05/01 0015 DC 05/01 Sulbactam Sodium IV 05/01 0044 0033 Sodium Chloride 100 ML Dextrose/Sodium 1,000 ML .Q10H 05/01 0130 AC 05/01 Chloride IV 0206 Heparin Sodium 5,000 UNIT Q8 05/01 0737 AC 05/01 (Porcine) SC 1246 Ketorolac 0 .STK-MED ONE 04/30 2357 DC Tromethamine .ROUTE Ketorolac 30 MG ONCE ONE 04/30 2330 DC 05/01 Tromethamine IV 04/30 2330 0005 Morphine Sulfate 2 MG Q2P PRN 05/01 129 AC IV Ondansetron HCl 4 MG Q8P PRN 05/01 0130 AC IV Ondansetron HCl 0 .STK-MED ONE 04/30 2357 DC .ROUTE Ondansetron HCl 4 MG ONCE ONE 04/30 2329 DC 05/01 IV 04/30 2330 0005 Sodium Chloride 1,000 ML BOLUS ONE 04/30 2329 DC 05/01 IV 05/01 0029 0005 Past History Travel History Traveled to [place] past 21 day No Medical History Blood Transfusion Hx: No Neurological: NONE EENT: NONE Cardiovascular: hyperlipidemia Respiratory: NONE Gastrointestinal: NONE Hepatic: cholelithiasis Renal: NONE Musculoskeletal: NONE Psychiatric: NONE Endocrine: obesity, vitamin D deficiency Blood Disorders: NONE Cancer(s): NONE 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 MOTHER, Age 80. SISTER, ; Cause: Opiate or related narcotic overdose. SISTER ([employer]). SISTER ([employer], post CCKY for sx gallstones). Psychosocial History Where Do You Live? Home Who Do You Live With? spouse Services at Home: None Primary Language: Khmer Smoking Status: Never Smoked ETOH Use: occasional use Illicit Drug Use: denies illicit drug use Living Will? no Power of Supervisor Capacitor Processing/HCP? no Other Social History: . Lives with . 2 daughters and 1 son- all [employer]. 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 No cigarettes. Rare alcohol. No drugs. Functional Ability ADLs Independent: dressing, eating, toileting, bathing. Ambulation: independent IADLs Independent: shopping, housework, finances, food prep, telephone, transportation , medication admin. 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 Review of Systems Constitutional: Reports: chills. Denies: diaphoresis, fever, malaise, weakness, unexplained weight loss. EENTM: Denies: blurred vision, double vision, visual changes, eye pain, eye drainage, eye tearing, icterus, ear discharge, ear pain, ear redness, hearing changes, nasal congestion, epistaxis, nasal pain, throat pain, throat swelling, mouth pain, tooth pain. Cardiovascular: Denies: chest pain, edema, orthopena, palpitations, peripheral edema, syncope. Respiratory: Reports: cough (dry). Denies: hemoptysis, orthopnea, short of breath, sputum production, stridor, wheezing. GI: Reports: abdominal pain, nausea, vomiting. Denies: bloating, constipation, diarrhea, distention, bowel incontinence, melena, bloody stool, changes in stool , steatorrhea. Genitourinary: Denies: discharge, dysuria, frequency, hematuria, hesitation, nocturia, pain, urgency. Musculoskeletal: Denies: back pain, gout, joint pain, joint swelling, muscle pain, muscle stiffness, neck pain. Skin: Denies: cysts, change in skin color, change in hair/nails, dryness, erythema, jaundice, lesions, lymphangitis, lumps, moles, rash. Neurological/Psychological: Denies: anxiety, ataxia, cognitive dysfunction, confusion, depressed, dementia, emotional problems, headache, numbness, paresthesia, pre-existing deficit, petit mal seizures, tingling, tremors, tonic-clonic seizures, unable to move lower ext , unable to move upper ext, weakness. Hematologic/Endocrine: Denies: bruising, bleeding, polyuria, polydipsia. Immunologic/Allergic: Denies: splenectomy, HIV/AIDS, lymphadenopathy. All Other Systems: Reviewed and Negative Exam & Diagnostic Data Vital Signs and I&O Vital Signs Date Time Temp Pulse Resp B/P Pulse O2 O2 Flow FiO2 Ox Delivery Rate 05/01 1440 98.2 82 20 120/72 96 05/01 0303 98.9 63 18 128/74 98 Room Air 05/01 0133 98.2 63 18 126/64 98 Room Air 04/30 2323 Room Air 04/30 2234 97.9 67 16 146/84 98 Room Air Intake & Output 05/01 1600 05/01 0400 04/30 0400 04/29 0400 Intake Total 500 0 Output Total Balance 500 0 Intake, IV 500 Intake, Oral 0 Patient 205 lb Weight Physical Exam: Well-developed, well-nourished, slightly obese female, in no apparent distress. Sclera anicteric. Conjunctiva pink. Oropharynx clear. No oral trush. No aphthous ulcers. There is no adenopathy, thyromegaly, or JVD. No peripheral stigmata of inflammatory bowel disease or chronic liver disease on exam. No spiders on the anterior chest wall. No CVA tenderness. Breast & pelvic exams: API. Lungs: clear to A&P. Heart exam: regular rate rhythm, S1 and S2, without any murmur. Abdominal exam: normal bowel sounds, soft belly, obese, moderate right epigastric tenderness, without guarding or rebound. No definite Sauceda sign. Small reducible ventral hernia, otherwise no mass. No definite organomegaly. No fluid shift. No pulsatile mass. Digital rectal exam: deferred by patient. Extremities: without C, C, or E. No palpable cords. Distal pulses 2+ bilaterally. DTRs 2+ bilaterally. No rash. No acute arthropathy. Alert and oriented x 3. Motor 5/5 B/L. Results Pertinent Lab Results: Laboratory Tests 05/01 04/30 0621 2253 Chemistry Sodium (137 - 145 mmol/L) 142 143 Potassium (3.5 - 5.1 mmol/L) 3.9 3.9 Chloride (98 - 107 mmol/L) 107 107 Carbon Dioxide (22 - 30 mmol/L) 27 25 Anion Gap (5 - 16) 8 11 BUN (7 - 17 mg/dL) 9 13 Creatinine (0.5 - 1.0 mg/dL) 0.7 0.7 Estimated GFR (>60 ml/min) > 60 > 60 BUN/Creatinine Ratio (7 - 25 %) 12.9 18.6 Glucose (65 - 99 mg/dL) 139 H Calcium (8.4 - 10.2 mg/dL) 9.7 Total Bilirubin (0.2 - 1.3 mg/dL) 0.9 0.9 Direct Bilirubin (< 0.4 mg/dL) 0.5 H AST (14 - 36 U/L) 323 H 107 H ALT (9 - 52 U/L) 316 H 86 H Alkaline Phosphatase (<127 U/L) 110 125 Troponin I (< 0.11 ng/ml) < 0.01 Total Protein (6.3 - 8.2 g/dL) 6.4 7.6 Albumin (3.5 - 5.0 g/dL) 3.6 4.2 Globulin (1.9 - 4.2 gm/dL) 3.4 Albumin/Globulin Ratio (1.1 - 2.2 %) 1.2 Amylase (30 - 110 U/L) 61 Lipase (23 - 300 U/L) 87 Coagulation PT (9.4 - 12.5 SEC) 11.3 INR (0.90 - 1.19) 1.08 Hematology CBC w Diff NO MAN DIFF REQ NO MAN DIFF REQ WBC (4.8 - 10.8 /CUMM) 7.0 14.5 H RBC (4.20 - 5.40 /CUMM) 3.93 L 4.55 Hgb (12.0 - 16.0 G/DL) 12.1 13.8 Hct (37 - 47 %) 35.5 L 40.9 MCV (81.0 - 99.0 FL) 90.3 89.9 MCH (27.0 - 31.0 PG) 30.9 30.4 RDW (11.5 - 14.5 %) 13.9 13.8 Plt Count (130 - 400 /CUMM) 253 317 MPV (7.4 - 10.4 FL) 9.0 8.1 Gran % (42.2 - 75.2 %) 68.4 82.9 H Lymphocytes % (20.5 - 51.1 %) 24.5 12.7 L Monocytes % (1.7 - 9.3 %) 6.3 3.6 Eosinophils % (0 - 5 %) 0.4 0.5 Basophils % (0.0 - 2.0 %) 0.4 0.3 Absolute Granulocytes (1.4 - 6.5 /CUMM) 4.8 12.0 H Absolute Lymphocytes (1.2 - 3.4 /CUMM) 1.7 1.8 Absolute Monocytes (0.10 - 0.60 /CUMM) 0.4 0.5 Absolute Eosinophils (0.0 - 0.7 /CUMM) 0 0.1 Absolute Basophils (0.0 - 0.2 /CUMM) 0 0 PUBS MCHC (33.0 - 37.0 G/DL) 34.2 33.8 Imaging/Other Studies: 04/30/2016: CT ABD & PELVIS W IV CONTRAST- 1. Gallstones with mild pericholecystic fat stranding. Clinical correlation for acute cholecystitis is suggested. 2. Fat-containing supraumbilical anterior abdominal wall hernia. The mid depth 3. Mild diverticular disease of sigmoid colon without evidence of acute diverticulitis. 4. Hepatic cysts. 05/01/2015: EKG- NSR @ 60, normal axis, normal intervals, nonspecific T-wave abnormalities anteriorly. 05/01/2016: XRY-PORTABLE CHEST XRAY- No acute cardiopulmonary findings. Assessment/Plan Assessment/Recommendations: 55-year-old female, followed by Dr. Holly Schmitt for primary care, non- hypertensive, non-diabetic, recently diagnosed hyperlipidemia, low Vit D, slightly obese, reportedly with previously normal LFTs, who started noticing abdominal pain intermittently 5 months ago, starting in the summer of 2015, usually after eating red meat or greasy foods. There is positive family history of gallbladder disease (patient's sister), otherwise no family history of any additional GI disease, GI emergency, or inherited liver disease. There is no apparent history of hepatitis. 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 She had a few recurrent episodes of abdominal pain after dietary indiscretion, last occurring in the evening of 04/30/2016, causing her to go to the [place] ER later that evening, where she arrived at approximately 10:30 PM, this time occurring after eating pasta and Sinhala food, and by nausea and vomiting, contents from above showing partially digested food, without blood or bile. Her abdominal pain was initially "10 out of 10". She was hemodynamically stable and persistently afebrile in the ER. There is no history of melena. She does not take any aspirin or NSAIDs. She denies any fevers, but thought she might have had some chills. She had a minimal dry cough , otherwise no symptoms of URI or UTI. She denies any jaundice, pruritus, or light stool, but claims that her urine was little dark, although she might of been dehydrated. She has not a previous EGD or baseline colonoscopy, despite her age. She does not smoke or consume significant amounts of alcohol. There is no history of blood transfusions, or any previous hospitalizations or surgery. There the patient's right epigastric pain is localized, without any radiation to the back or right scapula. It was slightly better when applying a heating pad, or when hunched over in the position. There is no GERD, odynophagia, dysphagia, ot early satiety. She denies any diarrhea, constipation, obstipation, or rectal bleeding. There was no chest pain or shortness of breath. The patient received Toradol, Zofran, and IV fluids in the ER, in addition to IV Unasyn & was admitted to the surgical service. She was not cultured prior to antibiotics. 04/30/2016: Admission labs- WBC 14.5 (83% gran, 12 gran Ab), H/H 13.8/40.9, normal MCV, PLT 317, glu 139, BUN/Cr 13/0.7, GFR > 60, normal electrolytes, including Ca2+ 9.7, albumin 4.2, globulin 3.4, TBil 0.9, alk phos 125, AST 107, ALT 86, troponin < .01, normal amylase/lipase 61/87 05/01/2016: PT 11.3, INR 1.08, WBC 7.0, H/H 12.1/35.5, PLT 253, normal lites, GFR > 60, alb 3.6, glob 2.8, TBil 0.9, DBil 0.5, alk phos 110. AST 323, ALT 316. 04/30/2016: CT ABD & PELVIS W IV CONTRAST- 1. Gallstones with mild pericholecystic fat stranding. Clinical correlation for acute cholecystitis is suggested. 2. Fat-containing supraumbilical anterior abdominal wall hernia. The mid depth 3. Mild diverticular disease of sigmoid colon without evidence of acute diverticulitis. 4. Hepatic cysts. 05/01/2015: EKG- NSR @ 60, normal axis, normal intervals, nonspecific T-wave abnormalities anteriorly. 05/01/2016: XRY-PORTABLE CHEST XRAY- No acute cardiopulmonary findings. *Clinically, the patient has biliary colic. Rule out cholecystitis. Rule out choledocholithiasis. Her CBD is borderline enlarged 7-8 mm. The normal lipase goes against pancreatitis. Her leukocytosis has responded to IV Unasyn. She was not cultured before being started on antibiotics. There are no labs in the [place] computer prior to admission. I am not certain of the patient's baseline LFTs, but she claims they are normal. There was no definite evidence of fatty liver on the CT, although the patient has risk factors for this, including hyperlipidemia and obesity. The hepatic cysts are incidental in nature. SUGGEST: NPO. IVF. Avoid NSAIDs. Analgesics. Zofran as needed. DVT prophylaxis. Continue empiric IV Unasyn as per surgery. *Await MRCP. Serial LFTs. CBC with differential. Consider checking full Hep A, B, & C serologies, BOZENA, Fe, TIBC, ferritin. Depending on trend of LFTs, fever curve, clinical course, and MRCP results, CCKY (+/- IOC) vs. preop ERCP. Further recommendations to follow after reviewing the above. As an aside, the patient was given my office number to arrange for a semi-elective baseline screening colonoscopy, once the gallbladder issue is addressed. Problem List: 1. Biliary colic 2. Elevated LFTs 3. Nausea & vomiting 4. Abdominal wall hernia 5. Hepatic cyst 6. Diverticula of colon Copies To: JESICA ADLER,HOLLY Abernathy; SHUN ADLER,KARLA Will. Consult Acknowledgment - Thank you for your consult request.
--- NOTE | 2016-05-01 17:28 | MRI REPORT ---
EXAMINATION: MR ABDOMEN WITHOUT CONTRAST CLINICAL INFORMATION: Evaluate for CBD stone. Elevated LFTs. COMPARISON: CT abdomen and pelvis dated 04/30/2016 TECHNIQUE: MR abdomen without contrast was obtained using routine sequences. MRCP images also obtained. FINDINGS: Lung bases appear unremarkable. Liver demonstrates multiple T1 hypointense and T2 hyperintense sac scattered throughout the hepatic parenchyma. Larger lesion demonstrating subtle internal septation within segment 4 left hepatic lobe (series 4 image 12 and series 2 image 16) measuring approximately 2 cm. Larger lesion right hepatic lobe appears well with partial internal septation (series 2 image 8-9 and series 4 image 17) measuring approximately 1.8 cm in the craniocaudal diameter. Multiple smaller lesions are scattered within the hepatic parenchyma. These lesions most likely represent hepatic cysts. Gallbladder demonstrates multiple tiny stones and sludge in the dependent portion. These are extending to the neck of the gallbladder and possibly cystic duct. There is abnormal gallbladder wall thickness and pericholecystic edema. These findings are compatible with acute cholecystitis. Common bile duct measures 0.6 cm proximally and 0.8 cm at the level of the pancreatic head. There is no evidence of choledocholithiasis. No evidence of intrahepatic biliary ductal dilatation. Spleen demonstrates tiny T2 hyperintense foci in the posterior peripheral aspect. Subtle T2 hyperintense focus in the mid spleen measuring approximately 0.8 cm. The appearance raises the possibility of a small hemangioma. Evaluation is limited without contrast. Minor prominence of the pancreatic duct. There is mild peripancreatic edema/fluid. The appearance raises the possibility of mild acute pancreatitis. Adrenal glands are within normal limits. Symmetric appearance of bilateral kidneys. Visualized bowel loops appear unremarkable.. Lymphovascular structures also appear unremarkable. No acute osseous abnormality. Degenerative changes of the spine. IMPRESSION: 1. Cholelithiasis. Tiny calculi also extending into the neck and possibly cystic duct. Acute cholecystitis. 2. No evidence of choledocholithiasis. Minor prominence of the CBD at the level of the pancreatic head. However, more proximal CBD and intrahepatic ducts are within normal limits. 3. Mild peripancreatic edema surrounding the body and tail of the pancreas. Pancreatitis cannot be excluded. Clinical and laboratory correlation recommended. 4. Multiple T2 hyperintense hepatic lesions likely represent cysts. 5. Splenic lesion approximately 0.8 cm splenic lesion may represent a small hemangioma. Evaluation is limited without contrast. Findings discussed with Dr. Maher at 5:20 PM on 05/01/2016
[2016-05-01 22:31] VITALS: BP 144/90
[2016-05-02 07:11] VITALS: BP 134/82
--- NOTE | 2016-05-02 07:30 | PN- Gastroenterology ---
Assessment/Plan Assessment/Recommendations: 55-year-old female, followed by Dr. Jabier Schmitt for primary care, non- hypertensive, non-diabetic, recently diagnosed hyperlipidemia, low Vit D, slightly obese, reportedly with previously normal LFTs, who started noticing abdominal pain intermittently 5 months ago, starting in the summer of 2015, usually after eating red meat or greasy foods. There is positive family history of gallbladder disease (patient's sister), otherwise no family history of any additional GI disease, GI emergency, or inherited liver disease. There is no apparent history of hepatitis. The patient intentionally lost 10 pounds over the past few months [employer]. She had a few recurrent episodes of abdominal pain after dietary indiscretion, last occurring in the evening of 04/30/2016, causing her to go to the [place] [facility] later that evening, where she arrived at approximately 10:30 PM, this time occurring after eating pasta and [place] food, and by nausea and vomiting, contents from above showing partially digested food, without blood or bile. Her abdominal pain was initially "10 out of 10". She was hemodynamically stable and persistently afebrile in the ER. There is no history of melena. She does not take any aspirin or NSAIDs. She denies any fevers, but thought she might have had some chills. She had a minimal dry cough , otherwise no symptoms of URI or UTI. She denies any jaundice, pruritus, or light stool, but claims that her urine was little dark, although she might of been dehydrated. She has not a previous EGD or baseline colonoscopy, despite her age. She does not smoke or consume significant amounts of alcohol. There is no history of blood transfusions, or any previous hospitalizations or surgery. There the patient's right epigastric pain is localized, without any radiation to the back or right scapula. It was slightly better when applying a heating pad, or when hunched over in the position. There is no GERD, odynophagia, dysphagia, ot early satiety. She denies any diarrhea, constipation, obstipation, or rectal bleeding. There was no chest pain or shortness of breath. The patient received Toradol, Zofran, and IV fluids in the ER, in addition to IV Unasyn & was admitted to the surgical service. She was not cultured prior to antibiotics. 04/30/2016: Admission labs- WBC 14.5 (83% gran, 12 gran Ab), H/H 13.8/40.9, normal MCV, PLT 317, glu 139, BUN/Cr 13/0.7, GFR > 60, normal electrolytes, including Ca2+ 9.7, albumin 4.2, globulin 3.4, TBil 0.9, alk phos 125, AST 107, ALT 86, troponin < .01, normal amylase/lipase 61/87 05/01/2016: PT 11.3, INR 1.08, WBC 7.0, H/H 12.1/35.5, PLT 253, normal lites, GFR > 60, alb 3.6, glob 2.8, TBil 0.9, DBil 0.5, alk phos 110. AST 323, ALT 316. 04/30/2016: CT ABD & PELVIS W IV CONTRAST- 1. Gallstones with mild pericholecystic fat stranding. Clinical correlation for acute cholecystitis is suggested. 2. Fat-containing supraumbilical anterior abdominal wall hernia. The mid depth 3. Mild diverticular disease of sigmoid colon without evidence of acute diverticulitis. 4. Hepatic cysts. 05/01/2015: EKG- NSR @ 60, normal axis, normal intervals, nonspecific T-wave abnormalities anteriorly. 05/01/2016: XRY-PORTABLE CHEST XRAY- No acute cardiopulmonary findings. *Clinically, the patient has biliary colic. Rule out cholecystitis. Rule out choledocholithiasis. Her CBD is borderline enlarged 7-8 mm. The normal lipase goes against pancreatitis. Her leukocytosis has responded to IV Unasyn. She was not cultured before being started on antibiotics. There are no labs in the [facility] prior to admission. I am not certain of the patient's baseline LFTs, but she claims they are normal. There was no definite evidence of fatty liver on the CT, although the patient has risk factors for this, including hyperlipidemia and obesity. The hepatic cysts are incidental in nature. 05/01/2016: MR ABDOMEN WITHOUT CONTRAST/MRCP- 1. Cholelithiasis. Tiny calculi also extending into the neck and possibly cystic duct. Acute cholecystitis. 2. No evidence of choledocholithiasis. Minor prominence of the CBD at the level of the pancreatic head. However, more proximal CBD and intrahepatic ducts are within normal limits. 3. Mild peripancreatic edema surrounding the body and tail of the pancreas. Pancreatitis cannot be excluded. Clinical and laboratory correlation recommended (*normal lipase; d/w patient- normal pancreas on CT) 4. Multiple T2 hyperintense hepatic lesions likely represent cysts (*d/w patient ; seen on 04/30/2016: CT AP with Iv cont) 5. Splenic lesion approximately 0.8 cm splenic lesion may represent a small hemangioma. Evaluation is limited without contrast (*d/w patient; no significant splenic abnormality seen on 04/30/2016: CT AP with IV cont) Findings discussed with Dr. Maher at 5:20 PM on 05/01/2016, per Dr. Pako Cabrales, of radiology. *As of 05/02/2016, the patient remains hemodynamically stable and afebrile, on IV Unasyn 3g Q6h. Her chills have resolved. She has not required any morphine overnight. She is getting Zofran as needed. She had 1 episode of mild nausea and vomiting, attributed to "caffeine withdrawal." She no longer has any abdominal pain. The MRCP findings were discussed with the patient. *Her CBD is clean. Her urine is rn pediatric icu. She denies any jaundice, light stools, or pruritus. She remains NPO for probable CCKY, getting IVF: D5 1/2 NS @ 100 cc/hr. SC Heparin was added for DVT prophylaxis. She most likely passed a CBD stone. Her biliary colic is stable. *She has acute cholecystitis based on imaging studies. SUGGEST: NPO. IVF. Avoid NSAIDs. Analgesics. Zofran as needed. DVT prophylaxis. Continue empiric IV Unasyn as per surgery. *Serial LFTs. CBC with differential. Consider checking full Hep A, B, & C serologies, BOZENA, Fe, TIBC, ferritin & fasting lipid panel. As 05/01/2016: MRCP with clean CBD, assuming 05/02/2016: LFTs trend is stable, will defer to surgery for CCKY (+/- IOC). At the moment, I do not think a preop ERCP is needed, but this can always be reconsidered postoperatively. *The patient is to bring in a copy of her outpatient baseline LFTs for my records. Further postop care as per surgery. Further inpatient GI follow up as needed. The patient was given my office number to arrange for a follow-up office visit in 1-2 months to recheck her LFTs and arrange for a semi- elective baseline screening colonoscopy, once the gallbladder issue is addressed. A message was left with Dr. Elmore, regarding the above. Problem List: 1. Biliary colic 2. Acute cholecystitis 3. Elevated LFTs 4. Nausea & vomiting 5. Abdominal wall hernia 6. Hepatic cyst 7. Diverticula of colon Subjective Subjective: 05/01/2016: MR ABDOMEN WITHOUT CONTRAST/MRCP- 1. Cholelithiasis. Tiny calculi also extending into the neck and possibly cystic duct. Acute cholecystitis. 2. No evidence of choledocholithiasis. Minor prominence of the CBD at the level of the pancreatic head. However, more proximal CBD and intrahepatic ducts are within normal limits. 3. Mild peripancreatic edema surrounding the body and tail of the pancreas. Pancreatitis cannot be excluded. Clinical and laboratory correlation recommended (*normal lipase; d/w patient- normal pancreas on CT) 4. Multiple T2 hyperintense hepatic lesions likely represent cysts (*d/w patient ; seen on 04/30/2016: CT AP with Iv cont) 5. Splenic lesion approximately 0.8 cm splenic lesion may represent a small hemangioma. Evaluation is limited without contrast (*d/w patient; no significant splenic abnormality seen on 04/30/2016: CT AP with IV cont) Findings discussed with Dr. Maher at 5:20 PM on 05/01/2016, per Dr. Pako Cabrales, of radiology. *As of 05/02/2016, the patient remains hemodynamically stable and afebrile, on IV Unasyn 3g Q6h. Her chills have resolved. She has not required any morphine overnight. She is getting Zofran as needed. She had 1 episode of mild nausea and vomiting, attributed to "caffeine withdrawal." She no longer has any abdominal pain. The MRCP findings were discussed with the patient. Her CBD is clean. Her urine is rn pediatric icu. She denies any jaundice, light stools, or pruritus. She remains NPO for probable CCKY, getting IVF: D5 1/2 NS @ 100 cc/hr. SC Heparin was added for DVT prophylaxis. Review of Systems: Full 14 point review of systems otherwise noncontributory, and as above. Review of Systems Constitutional: Reports: chills- resolved. Denies: diaphoresis, fever, malaise, weakness, unexplained weight loss. EENTM: Denies: blurred vision, double vision, visual changes, eye pain, eye drainage, eye tearing, icterus, ear discharge, ear pain, ear redness, hearing changes, nasal congestion, epistaxis, nasal pain, throat pain, throat swelling, mouth pain, tooth pain. Cardiovascular: Denies: chest pain, edema, orthopena, palpitations, peripheral edema, syncope. Respiratory: Reports: minimal cough (dry). Denies: hemoptysis, orthopnea, short of breath, sputum production, stridor, wheezing. GI: Reports: abdominal pain- resolved, nausea & vomiting x 1 Denies: bowel incontinence, melena, bloody stool, changes in stool, steatorrhea. Genitourinary: Denies: discharge, dysuria, frequency, hematuria, hesitation, nocturia, pain, urgency. Musculoskeletal: Denies: back pain, gout, joint pain, joint swelling, muscle pain, muscle stiffness, neck pain. Skin: Denies: cysts, change in skin color, change in hair/nails, dryness, erythema, jaundice, lesions, lymphangitis, lumps, moles, rash. Neurological/Psychological: Denies: anxiety, ataxia, cognitive dysfunction, confusion, depressed, dementia, emotional problems, headache, numbness, paresthesia, pre-existing deficit, petit mal seizures, tingling, tremors, tonic-clonic seizures, unable to move lower ext , unable to move upper ext, weakness. Hematologic/Endocrine: Denies: bruising, bleeding, polyuria, polydipsia. Immunologic/Allergic: Denies: splenectomy, HIV/AIDS, lymphadenopathy. All Other Systems: Reviewed and Negative Objective Vital Signs and I&Os Vital Signs Date Time Temp Pulse Resp B/P Pulse O2 O2 Flow FiO2 Ox Delivery Rate 05/02 0711 98.2 74 16 134/82 96 Room Air 05/01 2231 98.2 73 20 144/90 96 Room Air 05/01 1440 98.2 82 20 120/72 96 Intake & Output 05/02 1600 05/02 0400 05/01 1600 05/01 0400 04/30 1600 04/30 0400 Intake Total 934 605 8425 0 Output Total Balance 162 329 0994 0 Intake, IV 240 265 2439 Intake, Oral 700 0 Patient 205 lb Weight Physical Exam: Well-developed, well-nourished, pleasant, slightly obese female, in no apparent distress. Sclera anicteric. Conjunctiva pink. Oropharynx clear. No oral trush. No aphthous ulcers. There is no adenopathy, thyromegaly, or JVD. No peripheral stigmata of inflammatory bowel disease or chronic liver disease on exam. No spiders on the anterior chest wall. No CVA tenderness. Breast & pelvic exams: API. Lungs: clear to A&P. Heart exam: regular rate rhythm, S1 and S2, without any murmur. Abdominal exam: normal bowel sounds, soft belly, obese, currently nontender, without guarding or rebound. Negative Sauceda sign at present. Small reducible ventral hernia, otherwise no mass. No definite organomegaly. No fluid shift. No pulsatile mass. Digital rectal exam: deferred by patient ("OB- neg at [employer] a few months [employer]"). Extremities: without C, C, or E. No palpable cords. B/L LE ALPS. Distal pulses 2+ bilaterally. DTRs 2+ bilaterally. No rash. No acute arthropathy. Alert and oriented x 3. Motor 5/5 B/L. Current Medications: Current Medications Sig/Heriberto Start time Last Medication Dose Route Stop Time Status Admin Acetaminophen 650 MG Q6-PRN PRN 05/01 1530 05/01 PO 2140 Ampicillin Sodium/ 3,000 MG Q6 05/01 0600 05/02 Sulbactam Sodium IV 0553 Sodium Chloride 100 ML Dextrose/Sodium 1,000 ML .Q10H 05/01 0130 05/01 Chloride IV 2139 Heparin Sodium 5,000 UNIT Q8 05/01 0737 05/02 (Porcine) SC 0549 Morphine Sulfate 2 MG Q2P PRN 05/01 0130 05/01 IV 1902 Ondansetron HCl 4 MG Q8P PRN 05/01 0130 AC IV Results Pertinent Lab Results: Laboratory Tests 05/02 05/01 0718 0621 Chemistry Sodium (137 - 145 mmol/L) Pending 142 Potassium (3.5 - 5.1 mmol/L) Pending 3.9 Chloride (98 - 107 mmol/L) Pending 107 Carbon Dioxide (22 - 30 mmol/L) Pending 27 Anion Gap (5 - 16) Pending 8 BUN (7 - 17 mg/dL) Pending 9 Creatinine (0.5 - 1.0 mg/dL) Pending 0.7 Estimated GFR (>60 ml/min) > 60 BUN/Creatinine Ratio (7 - 25 %) Pending 12.9 Total Bilirubin (0.2 - 1.3 mg/dL) Pending 0.9 Direct Bilirubin (< 0.4 mg/dL) Pending 0.5 H AST (14 - 36 U/L) Pending 323 H ALT (9 - 52 U/L) Pending 316 H Alkaline Phosphatase (<127 U/L) Pending 110 Total Protein (6.3 - 8.2 g/dL) Pending 6.4 Albumin (3.5 - 5.0 g/dL) Pending 3.6 Amylase Pending Lipase Pending Coagulation PT (9.4 - 12.5 SEC) 11.3 INR (0.90 - 1.19) 1.08 Hematology CBC w Diff Pending NO MAN DIFF REQ WBC (4.8 - 10.8 /CUMM) Pending 7.0 RBC (4.20 - 5.40 /CUMM) Pending 3.93 L Hgb (12.0 - 16.0 G/DL) Pending 12.1 Hct (37 - 47 %) Pending 35.5 L MCV (81.0 - 99.0 FL) Pending 90.3 MCH (27.0 - 31.0 PG) Pending 30.9 RDW (11.5 - 14.5 %) Pending 13.9 Plt Count (130 - 400 /CUMM) Pending 253 MPV (7.4 - 10.4 FL) Pending 9.0 Gran % (42.2 - 75.2 %) 68.4 Lymphocytes % (20.5 - 51.1 %) 24.5 Monocytes % (1.7 - 9.3 %) 6.3 Eosinophils % (0 - 5 %) 0.4 Basophils % (0.0 - 2.0 %) 0.4 Absolute Granulocytes (1.4 - 6.5 /CUMM) 4.8 Absolute Lymphocytes (1.2 - 3.4 /CUMM) 1.7 Absolute Monocytes (0.10 - 0.60 /CUMM) 0.4 Absolute Eosinophils (0.0 - 0.7 /CUMM) 0 Absolute Basophils (0.0 - 0.2 /CUMM) 0 PUBS MCHC (33.0 - 37.0 G/DL) Pending 34.2 04/303 Chemistry Sodium (137 - 145 mmol/L) 143 Potassium (3.5 - 5.1 mmol/L) 3.9 Chloride (98 - 107 mmol/L) 107 Carbon Dioxide (22 - 30 mmol/L) 25 Anion Gap (5 - 16) 11 BUN (7 - 17 mg/dL) 13 Creatinine (0.5 - 1.0 mg/dL) 0.7 Estimated GFR (>60 ml/min) > 60 BUN/Creatinine Ratio (7 - 25 %) 18.6 Glucose (65 - 99 mg/dL) 139 H Calcium (8.4 - 10.2 mg/dL) 9.7 Total Bilirubin (0.2 - 1.3 mg/dL) 0.9 AST (14 - 36 U/L) 107 H ALT (9 - 52 U/L) 86 H Alkaline Phosphatase (<127 U/L) 125 Troponin I (< 0.11 ng/ml) < 0.01 Total Protein (6.3 - 8.2 g/dL) 7.6 Albumin (3.5 - 5.0 g/dL) 4.2 Globulin (1.9 - 4.2 gm/dL) 3.4 Albumin/Globulin Ratio (1.1 - 2.2 %) 1.2 Amylase (30 - 110 U/L) 61 Lipase (23 - 300 U/L) 87 Hematology CBC w Diff NO MAN DIFF REQ WBC (4.8 - 10.8 /CUMM) 14.5 H RBC (4.20 - 5.40 /CUMM) 4.55 Hgb (12.0 - 16.0 G/DL) 13.8 Hct (37 - 47 %) 40.9 MCV (81.0 - 99.0 FL) 89.9 MCH (27.0 - 31.0 PG) 30.4 RDW (11.5 - 14.5 %) 13.8 Plt Count (130 - 400 /CUMM) 317 MPV (7.4 - 10.4 FL) 8.1 Gran % (42.2 - 75.2 %) 82.9 H Lymphocytes % (20.5 - 51.1 %) 12.7 L Monocytes % (1.7 - 9.3 %) 3.6 Eosinophils % (0 - 5 %) 0.5 Basophils % (0.0 - 2.0 %) 0.3 Absolute Granulocytes (1.4 - 6.5 /CUMM) 12.0 H Absolute Lymphocytes (1.2 - 3.4 /CUMM) 1.8 Absolute Monocytes (0.10 - 0.60 /CUMM) 0.5 Absolute Eosinophils (0.0 - 0.7 /CUMM) 0.1 Absolute Basophils (0.0 - 0.2 /CUMM) 0 PUBS MCHC (33.0 - 37.0 G/DL) 33.8 Imaging/Other Studies: 04/30/2016: CT ABD & PELVIS W IV CONTRAST- 1. Gallstones with mild pericholecystic fat stranding. Clinical correlation for acute cholecystitis is suggested. 2. Fat-containing supraumbilical anterior abdominal wall hernia. The mid depth 3. Mild diverticular disease of sigmoid colon without evidence of acute diverticulitis. 4. Hepatic cysts. 5. Normal spleen & pancreas. 05/01/2015: EKG- NSR @ 60, normal axis, normal intervals, nonspecific T-wave abnormalities anteriorly. 05/01/2016: XRY-PORTABLE CHEST XRAY- No acute cardiopulmonary findings. 05/01/2016: MR ABDOMEN WITHOUT CONTRAST/MRCP- 1. Cholelithiasis. Tiny calculi also extending into the neck and possibly cystic duct. Acute cholecystitis. 2. No evidence of choledocholithiasis. Minor prominence of the CBD at the level of the pancreatic head. However, more proximal CBD and intrahepatic ducts are within normal limits. 3. Mild peripancreatic edema surrounding the body and tail of the pancreas. Pancreatitis cannot be excluded. Clinical and laboratory correlation recommended (*normal lipase; d/w patient- normal pancreas on CT) 4. Multiple T2 hyperintense hepatic lesions likely represent cysts (*d/w patient ; seen on 04/30/2016: CT AP with Iv cont) 5. Splenic lesion approximately 0.8 cm splenic lesion may represent a small hemangioma. Evaluation is limited without contrast (*d/w patient; no significant splenic abnormality seen on 04/30/2016: CT AP with IV cont) Findings discussed with Dr. Maher at 5:20 PM on 05/01/2016, per Dr. Pako Cabrales, of radiology.
[2016-05-02 08:23] LABS: ABSOLUTE BASOPHIL COUNT 0 /CUMM (0.0-0.2); ABSOLUTE EOSINOPHIL COUNT 0.1 /CUMM (0.0-0.7); ABSOLUTE GRANULOCYTE CT 3.8 /CUMM (1.4-6.5); ABSOLUTE LYMPH COUNT 2.5 /CUMM (1.2-3.4); ABSOLUTE MONOCYTE COUNT 0.3 /CUMM (0.10-0.60); BASOPHIL % 0.5 % (0.0-2.0); EOSINOPHIL % 1.3 % (0-5); GRANULOCYTE % 56.8 % (42.2-75.2); HEMATOCRIT 39.7 % (37-47); MEAN CORPUSCULAR HGB 30.5 PG (27.0-31.0); MEAN CORPUSCULAR HGB CONC 33.5 G/DL (33.0-37.0); MEAN PLATELET VOLUME 8.8 FL (7.4-10.4); PLATELET COUNT 284 /CUMM (130-400); RBC DISTRIBUTION WIDTH 13.7 % (11.5-14.5); RED BLOOD CELL CT 4.36 /CUMM (4.20-5.40); WHITE BLOOD CELL COUNT 6.8 /CUMM (4.8-10.8)
--- NOTE | 2016-05-02 09:44 | PN- General Surgery ---
Subjective Subjective: Patient reporting improved pain overnight. Presently not requiring any pain medication. Denies fevers/chills. Denies nausea and vomitting. States that her urine is less concentrated. She denies chest pain, shortness of breath and difficulty breathing. Objective Vital Signs and I&Os Vital Signs Date Time Temp Pulse Resp B/P Pulse O2 O2 Flow FiO2 Ox Delivery Rate 05/02 0711 98.2 74 16 134/82 96 Room Air 05/01 2231 98.2 73 20 144/90 96 Room Air 05/01 1440 98.2 82 20 120/72 96 Intake & Output 05/02 1600 05/02 0800 05/02 0000 05/01 1600 05/01 0800 05/01 0000 Intake Total 199 238 6181 500 Output Total Balance 505 021 8256 500 Intake, IV 600 800 800 500 Intake, Oral 700 0 Patient 205 lb Weight Physical Exam: General: Alert and oriented x3, no acute distress HEENT: Sclera anicteric Cardiac: RRR, s1s2 Pulmonary: CTA bilaterally Abdomen: Obese, non-distended, non-tender on exam, +bs Extremiteis: Moves all extremites, no peripheral edema, calves soft and non- tender Assessment/Plan Assessment/Plan This is a 55 year old non-diabetic, non-smoker, hospital day 2 for abdominal discomfort with acute cholecystitis and evidence of cholelithiasis, MRCP negative for cbd stones, liver enzymes elevated but now trending down, pancreatic enzymes elevated today. -Discuss with Dr. Elmore. -Possible lap neisha today with ERCP to follow postoperatively, versus IOC, versus r/o pancreatic duct stone -Keep patient npo for now -Continue IV fluids at d5 1/2NS Core Measures/Miscellaneous Venous Thromboembolism VTE Risk Factors: Age > 40, Obesity VTE Contraindications: No Contraindications VTE Prophylaxis Ordered Inpt Mechanical (ALPS/TEDS) VTE Diagnosis: No VTE Type: NONE VTE Confirmed by (Test): NONE Beta Lavinia Is Beta Lavinia a Home Med? No Antibiotics Is Patient on Antibiotics? Yes If Yes: infection
[2016-05-02 14:37] VITALS: BP 140/80
--- NOTE | 2016-05-02 20:42 | NUR ---
PATIENT OFF THE FLOOR FOR OR.
[2016-05-03 02:35] VITALS: BP 138/74
--- NOTE | 2016-05-03 03:06 | NUR ---
PATIENT CAME BACK TO THE FLOOR FROM OR FOLLOWING LAP ANTONIO. ALERT & ORIENTED. DENIES ANY PAIN OR DISCOMFORT. WILL CONTINUE TO MONITOR.
[2016-05-03 04:36] VITALS: BP 122/70
[2016-05-03 06:30] VITALS: BP 132/78
--- NOTE | 2016-05-03 07:51 | PN- General Surgery ---
Subjective Subjective: Awake, alert post op No complaints overnight Pain well controlled, no nausea Wants to eat and go home Objective Vital Signs and I&Os Vital Signs Date Time Temp Pulse Resp B/P Pulse O2 O2 Flow FiO2 Ox Delivery Rate 05/03 0630 98.1 59 18 132/78 93 Room Air 05/03 0436 98.2 68 20 122/70 95 Room Air 05/03 0235 98.1 73 20 138/74 93 Nasal Cannula 05/03 0000 94 Nasal 1.0L Cannula 05/02 1437 98.2 70 20 140/80 96 Intake & Output 05/03 0800 05/03 0000 05/02 1600 05/02 0800 05/02 0000 05/01 1600 Intake Total 650 700 800 842 588 4581 Output Total 900 Balance -250 700 800 802 279 6847 Intake, IV 450 300 800 600 800 800 Intake, Oral 200 400 0 700 Output, Urine 900 Physical Exam: vss afebrile General: alert and oriented times three Chest: clear anteriorly bilaterally, RRR Abd: soft, nondistended, nontender, good bs Ext: warm, no edema Wounds: dressed, dry Assessment/Plan Assessment/Plan 55 yo female s/p mrcp, lap neisha pod 1 regular diet fu labs this am dc home if tolerates diet and labs ok follow up with Dr Elmore and with GI Instructed to call GI with any increased pain or nausea, pt is aware of possiblity of retained stones Core Measures/Miscellaneous Venous Thromboembolism VTE Risk Factors: Age > 40, Obesity VTE Contraindications: No Contraindications VTE Prophylaxis Ordered Inpt Mechanical (ALPS/TEDS) VTE Diagnosis: No VTE Type: NONE VTE Confirmed by (Test): NONE Beta Lavinia Is Beta Lavinia a Home Med? No Antibiotics Is Patient on Antibiotics? No If Yes: infection
[2016-05-03] MEDS ORDERED: VICODIN 5-3001 EACH PO (07:58)
--- NOTE | 2016-05-03 08:01 | Patient Discharge Instructions ---
Discharge Instructions General Discharge Information You were seen/treated for: abdominal pain, cholecystitis, cholelithiasis You had these procedures: mrcp, lap cholecystectomy Watch for these problems: increased abdominal pain or nausea Do not soak the wound: Yes Other wound care: Keep incisions clean and dry, may shower, no bathing or soaking Diet Continue normal diet: Yes Activity Activity Self Limited: Yes Pounds, do NOT lift more than: 10 Acute Coronary Syndrome Inclusion Criteria At DC or during hospital stay patient has or had the following: ACS DIAGNOSIS No Discharge Core Measures Meds if any: Prescribed or Continued at Discharge Meds if any: NOT Prescribed or Continued at Discharge Congestive Heart Failure Inclusion Criteria At DC or during hospital stay patient has or had the following: CHF DIAGNOSIS No Discharge Core Measures Meds if any: Prescribed or Continued at Discharge Meds if any: NOT Prescribed or Continued at Discharge Cerebrovascular accident Inclusion Criteria At DC or during hospital stay patient has or had the following: CVA/TIA Diagnosis No Discharge Core Measures Meds if any: Prescribed or Continued at Discharge Meds if any: NOT Prescribed or Continued at Discharge Venous thromboembolism Inclusion Criteria VTE Diagnosis No VTE Type NONE VTE Confirmed by (Test) NONE Discharge Core Measures - Per Current guidelines, there needs to be overlap - treatment for the first 5 days of Warfarin therapy. - If discharged on Warfarin prior to 5 days of - overlap therapy, the patient will need to be - assessed for post discharge needs including - *Post discharge parental anticoagulation - *Warfarin and/or parental anticoagulation education - *Follow up date to check INR post discharge At least 5 days overlap therapy as Inpatient No Meds if any: Prescribed or Continued at Discharge Note: Overlap Therapy is Warfarin and Anticoagulant Meds if any: NOT Prescribed or Continued at Discharge
[2016-05-03 08:27] LABS: ABSOLUTE BASOPHIL COUNT 0 /CUMM (0.0-0.2); ABSOLUTE EOSINOPHIL COUNT 0 /CUMM (0.0-0.7); ABSOLUTE GRANULOCYTE CT 8.5 /CUMM (1.4-6.5); ABSOLUTE LYMPH COUNT 0.7 /CUMM (1.2-3.4); ABSOLUTE MONOCYTE COUNT 0 /CUMM (0.10-0.60); BASOPHIL % 0 % (0.0-2.0); EOSINOPHIL % 0 % (0-5); HEMATOCRIT 40.3 % (37-47); MEAN CORPUSCULAR HGB 30.9 PG (27.0-31.0); MEAN CORPUSCULAR HGB CONC 34.3 G/DL (33.0-37.0); PLATELET COUNT 294 /CUMM (130-400); RED BLOOD CELL CT 4.48 /CUMM (4.20-5.40); WHITE BLOOD CELL COUNT 9.3 /CUMM (4.8-10.8)
[2016-05-03 09:20] LABS: GRANULOCYTE % 91.9 % (42.2-75.2)
[2016-05-03 14:27] VITALS: BP 134/90
--- NOTE | 2016-05-04 11:50 | Operative Report ---
Operative/Inv Procedure Report Surgery Date: 05/02/16 Name of Procedure: Lap Cholecystectomy Pre-Operative Diagnosis: Gallstone pancreatitis Post-Operative Diagnosis: Same Estimated Blood Loss: scant Surgeon/Home Delivery Driver: SHUN ADLER,KARLA HINTON Anesthesia: general endotracheal tube Operative/Procedure Note Note: Patient was positioned supine. After successful induction of general anesthesia, the patient's abdomen was clipped, prepped and draped in the usual sterile fashion. Local anesthetic was injected at the top of the umbilicus and then a curved horizontal incision little over a centimeter was made there with a 15 blade and then deepened to the midline fascia which was incised vertically a little over a centimeter. Both sides were secured with 0 Vicryl stay sutures and then the thin peritoneal layer was entered, 10 mm Mir trocar inserted obliquely to the right, and the gas was turned on to 15 mm. After insufflation and repositioning to reverse Trendelenburg, 3 more dissecting 5 mm trochars were placed in the right subcostal area, first lateral, then mid-subcostal, then subxiphoid. The gallbladder fundus was grasped from the lateral port and retracted up over the edge of the liver after taking down some edematous adhesions mostly omentum, and then we dissected out the area of the triangle of Calot while retracting the infundibulum caudally / laterally. First the cystic duct was identified, it was short and the preoperative MRCP helped, isolated at the neck, clipped 3 times, divided after the second clip and then in similar fashion the cystic artery was identified medially, dissected and divided. Then the gallbladder was from the liver bed using cautery then lowered into an Endobag and removed through the umbilical incision. The instruments and then the trochars were removed letting the gas escape. The fascial incision was closed with a figure 8 Vicryl then all 4 skin incisions were closed with interrupted subcuticular 4-0 Monocryl, followed by Mastisol Steri-Strips and Bandaids. Estimated blood loss was minimal, lap and sponge counts were correct, wound expectancy was clean-contaminated, IV fluids crystalloid, complications none, patient tolerated the procedure well and was returned to the recovery room in satisfactory condition.
== END 2016-05-03 15:40 ==
LOC: ENRESERV → ENRESERVTM → ENRESERVDT → ERH 22:27 → ENPENDDIS 05-01 00:38 → ERHI 05-01 00:38 → 2NA 05-01 00:38 → EDBEDREQ 05-01 01:48 → 2NA 05-01 03:16
PROVIDERS: Emergency Medicine; Nurse Practitioner; Physician Assistant; Physician Assistant Surgical; ADMIT Surgery
DX: K81.0 Acute cholecystitis (principal); E66.9 Obesity, unspecified
CPT/HCPCS: 74181; 36415; 74177; 82436; 88304; 93005; 93010; 96374; 96375; G0378; J0131; J1170; J1644; J1885; J2405; J7042

== ENCOUNTER 2016-08-12 20:35 | Emergency (ER) | payer OTHER ==
[~2016-08-12 20:35] MED LIST: VICODIN 5-3001 EACH PO
[2016-08-12 20:50] VITALS: BP 148/74
--- NOTE | 2016-08-12 21:12 | ED ANIMAL BITE/WOUND CHECK ---
History of Present Illness General Chief Complaint: Animal/Insect Bite Stated Complaint: "DOG BITE ON RT HAND" Source: patient Exam Limitations: no limitations Vital Signs & Intake/Output Vital Signs & Intake/Output Vital Signs Date Time Temp Pulse Resp B/P B/P Pulse O2 O2 Flow FiO2 Mean Ox Delivery Rate 08/12 2049 99.0 65 16 148/74 98 Room Air ED Intake and Output 08/13 0000 08/12 1200 Intake Total 0 Output Total Balance 0 Intake, Oral 0 Allergies Coded Allergies: Sulfa (Sulfonamide Antibiotics) (Intermediate, HIVES 04/30/16) Reconcile Medications Amoxicillin/Potassium Clav (Augmentin 875-125 Tablet) 875 MG-125 MG TABLET 1 TAB PO BID dog bite Hydrocodone/Acetaminophen (Vicodin 5-300 MG Tablet) 5 MG-300 MG TABLET 1-2 TAB PO Q4P PRN pain Triage Note: TRIAGE; PT TO ED WITH DOG BITE TO HER RT HAND. NOTED PUNCTURE WOUNDS WITH SWELLING AND BRUISING. +CMS. DOG WAS PTS OWN, UNSURE OF VACCINE STATUS. UNSURE OF LAST TETANUS. REFUSING XRAY UNTIL SEEN BY PROVIDER. Triage Nurses Notes Reviewed? yes Onset: Abrupt Duration: constant Timing: single episode today Injury Environment: home Is Injury an Animal Bite? Yes Animal Type: dog Context of Animal Attack: approached animal HPI: Patient is a 55-year-old female who presents emergency room stating that this evening while examining her dog for tick's the dog abruptly it patient to the right dorsal aspect of her third MCP joint aspect of her hands resulting in a laceration which bleeding was immediately controlled prior to arrival. Patient currently complains of mild 3/10 localized hand pain. Tetanus is unknown. Dog' s immunizations are up to date. Patient is left arm dominant (DARREN LOPEZ) Past History Travel History Traveled to [place] past 21 day No Medical History Any Pertinent Medical History? 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 MOTHER, Age 80. SISTER, ; Cause: Opiate or related narcotic overdose. SISTER ([facility]). SISTER ([employer], post [facility] for sx gallstones). Hx Contributory? No (DARREN LOPEZ) Review of Systems Review of Systems Constitutional: Reports: no symptoms. EENTM: Reports: no symptoms. Respiratory: Reports: no symptoms. Cardiovascular: Reports: no symptoms. GI: Reports: no symptoms. Genitourinary: Reports: no symptoms. Musculoskeletal: Reports: see HPI, joint pain, joint swelling. Skin: Reports: see HPI. Neurological/Psychological: Reports: no symptoms. Hematologic/Endocrine: Reports: see HPI, bleeding. Immunologic/Allergic: Reports: no symptoms. All Other Systems: Reviewed and Negative (DARREN LOPEZ) Physical Exam Physical Exam General Appearance: no apparent distress, alert, comfortable Comments: Well-developed well-nourished no apparent distress. HEENT: Atraumatic, extraocular motion intact Neck: Supple, no lymphadenopathy Back: Nontender Respiratory: No respiratory distress Neuro: Alert and oriented x3 Psych: Mood affect normal, normal memory normal judgment. Diagram Hands, Dorsum: 1) Noted superficial 1 cm V flap laceration margins revised no active bleeding. Moderate point tenderness noted full active range of motion and resisted range of motion noted with 1-5 DIGIT flexion and extension Dermatomes intact No tendon deficit (DARREN LOPEZ) Progress Differential Diagnosis: abscess, cellulitis, joint infection, tenosysnovitis Plan of Care: Current Medications Sig/Heriberto Start time Last Medication Dose Stop Time Status Admin Ibuprofen 600 MG ONCE ONE 08/12 2214 AC (Motrin) 08/13 2215 Tetanus/Diphtheria 0.5 ML ONCE ONE 08/12 2214 AC Toxoids Adsorbed 08/13 2215 (Decavac) The bite wound site was irrigated with peroxide and water and bacitracin bandage was applied patient was offered x-rays however declined. I discussed with patient that there could be concerns of foreign body retention and fracture which they were aware however they still declines this evaluation of an x-ray. Patient will be administered antibiotic prophylaxis and tetanus was updated. Patient was strongly advised to return to emergency room if symptoms worsen and they will comply (DARREN LOPEZ) Departure Departure Disposition: LEFT AGAINST MEDICAL ADVICE Condition: Stable Clinical Impression Primary Impression: Dog bite of right hand Referrals: JESICA ADLER,HOLLY Abernathy (PCP/Family) Additional Instructions: As discussed you are leaving AGAINST MEDICAL ADVICE and to not receive an x-ray. Please begin the prescription of Augmentin as directed for the full course this prescription is waiting a [facility] pharmacy. Please apply topical antibiotic to the region once a day for the following 4 days. Then keep area dry and clean and opened. If you note signs of infection redness, pain, swelling, discharge return to the emergency room immediately. Departure Forms: Customer Survey General Discharge Information Prescriptions: Current Visit Scripts Amoxicillin/Potassium Clav (Augmentin 875-125 Tablet) 1 TAB PO BID #14 TAB (DARREN LOPEZ) PA/RESPITE COORDINATOR Co-Sign Statement Statement: ED Attending supervision documentation- [] I saw and evaluated the patient. I have also reviewed all the pertinent lab results and diagnostic results. I agree with the findings and the plan of care as documented in the PA's/RESPITE COORDINATOR's documentation. [X] I have reviewed the ED Record and agree with the PA's/RESPITE COORDINATOR's documentation. [] Additions or exceptions (if any) to the PAs/RESPITE COORDINATOR's note and plan are summarized below: [] (MARYAM ADLER,BOGDAN)
[2016-08-12] MEDS ORDERED: AUGMENTIN 875-1 EACH PO (22:07)
== END 2016-08-12 22:26 ==
LOC: ERH 20:35
DX: S61.451A Open bite of right hand, initial encounter (principal); W54.0XXA Bitten by dog, initial encounter
CPT/HCPCS: 90471; 90714